=== PATIENT | female | born 1945 | race African-American/Black ===

== ENCOUNTER 2024-09-12 08:09 | Outpatient (AMB) | payer MEDICARE, MEDICAID, SELFPAY ==
--- NOTE | 2024-09-12 08:15 | A.OFFPC_ITS ---
Vital Signs 09/12/24 08:25 09/12/24 08:29 Height 5 ft Weight 126 lb BMI 24.6 BP 192/88 H 138/82 Blood Pressure Location Rt brachial Rt brachial Position Sitting Pulse 60 Pulse Source Pulse Oximeter Temp 97.1 F Temp Source Temporal Artery Scan Pulse Oximetry (%) 99 Oxygen Delivery Method Room Air Intake Visit Reasons: Hypertension/Kidney disease Intake Note: Cony presents in the office today to establish care. Business Unit Director Required: Yes Business Unit Director Language: Citrix Architect Name: Roslyn Newton [id number] Allergies No Known Allergies Allergy (Verified 09/12/24 08:36) Medication List - Last Reconciled 09/12/24 by Kylie Babb CNP amlodipine 5 mg PO DAILY apixaban (Eliquis) 2.5 mg PO BID carvedilol 6.25 mg PO ONCE sevelamer carbonate 800 mg PO TID Tobacco use date assessed: 09/12/24 Fall risk assessment: 1 Fall in past year Last assessed Fall Risk: 09/12/24 Dental Screening Dental Screen Date: 09/12/24 Did you have a dental visit in the last 12 months?: No Did you have a dental problem in the last 6 months where you did not have access to dental care?: No Was dental information given to patient?: Patient declined HPI HPI Comments History of Present Illness Details 78-year-old Swedish-speaking female, acc ompanied by her daughter presents to establish care. She admits to taking her medications as prescribed without adverse reactions. Relocated to [facility] from [place] in 02/2024. Prior PCP? 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 Does not vape. Does not dri nk alcohol. Denies recreational drug use - Has been making healthy dietary choice s. Exercises routinely. Generally sleep well Health maintenance - Last eye exam was 2 years ago. Referr ed to Ophthalmology for routine eye exam - Last dental visit was in 07/2023; bernarda raged to schedule an appointment with his dentist for routine dental care - Last tetanus vaccine was more than 10 years ago; received Tdap vaccine today - Notes that she is up-to-date on the fl u vaccines - She notes that she was vaccinated for PNA. Record not currently available - She has never been vaccinated for waller gles - Last pap smear test was about 5 years: normal. She has an appointment scheduled with [facility] cold working supervisor in 09/26/2024 - Last mammogram was 2 [place] ago [place]: She has mammogram scheduled at [facility] - She has never had a colonoscopy. She h as a colonoscopy scheduled with [facility] in 12/2024 - [place]: Dexa scan ordered [facility] Tu, [place], Sat and nephrology [facility] Cardiology Interpretation by a professional wood lather via telephone. [facility] Medical History (Updated 09/12/24 @ 14:18 by Kylie Babb CNP) Kidney disease High blood pressure Asthma Family History (Updated 09/12/24 @ 08:24 by Gabbi Engel MA) Mother Asthma Hypertension Social History (Updated 09/12/24 @ 08:25 by Gabbi Engel MA) Housing: Apartment Alcohol intake: never Patient Tobacco Use Status: Never used Tobacco e-Cigarette/Vaping Use: Never Used Second Hand Smoke Exposure: No service: No Current occupational status: retired and other Current occupational exposures/hazards: No Cognitive needs: No Hearing needs: No Vision needs: No Questionnaire PHQ-9 Over the last 2 weeks, how often have you been bothered by any of the following problems? 1. Little interest or pleasure in doing things: several days 2. Feeling down, depressed, or hopeless: not at all 3. Trouble falling or staying asleep, or sleeping too much: not at all 4. Feeling tired or having little energy: not at all 5. Poor appetite or overeating: several days 6. Feeling bad about yourself - or that you are a failure or have let yourself or your family down: not at all 7. Trouble concentrating on things, such as reading the newspaper or watching television: not at all 8. Moving or speaking so slowly that other people could have noticed. Or the opposite - being so fidgety or restless that you have been moving around a lot more than usual: not at all 9. Thoughts that you would be better off or of hurting yourself in some way: not at all Total score: 2 Depression Screening Interpretation: Negative Depression Screening Done: Yes 73343 - PHQ-9 Billing: Yes Source: Developed by Drs. Len Gomez, Rylie Blackman, Juan M Borrego and colleagues, with an educational santos from [employer]. Thrive Questionnaire Date Thrive assessed: 09/12/24 I am a: Patient What is your living situation today?: I have a steady place to live Within the past 12 months, did the food you bought not last and you didn't have the money to get more?: Sometimes True Within the past 12 months, did you worry whether your food would run out before you got money to buy more?: Never true Do you have trouble paying for medicines?: No Do you have trouble getting transportation to medical appointments?: No Do you have trouble paying your heating and electricity bill?: No Do you have trouble taking care of your child, family member or friend?: No Do you have trouble with day-to-day activities such as bathing, preparing meals, shopping, managing finances, etc.?: No Are you currently unemployed and looking for a job?: Yes Are you interested in more education?: I choose not to answer this question Please select the resources that you would like help with: None Currently or been in a relationship where the following occur: No concerns reported THRIVE Score: 1 AUDIT C Alcohol Use Questionnaire (AUDIT-C) 1. How often do you have a drink containing alcohol?: Never Total Score: 0 JUS-7 AMB Questionnaire JUS-7 Date JUS - 7 assessed: 09/12/24 Feeling nervous, anxious, or on edge: 0 = Not at all Not being able to stop or control worryin = Not at all Worrying too much about different things: 1 = Several days Trouble relaxin = Not at all Being so restless that it is hard to sit still: 0 = Not at all Becoming easily annoyed or irritable: 0 = Not at all Feeling afraid as if something awful might happen: 0 = Not at all Total JUS-7 score (0-4 normal; 5-9 mild; 10-14 moderate; 15-21 severe): 1 Source: Developed by Drs. Len Gomez, Rylie Blackman, Juan M Borrego and colleagues, with an educational santos from [employer]. Review of Systems Const Details: Denies chills, Denies fatigue, Denies fever(s), Denies headache(s) and Denies weakness HEENT Denies change in vision, Denies dizziness, Denies headache(s), Denies hearing loss, Denies nasal congestion, Denies sinus pain, Denies sinus pressure and Denies sore throat Card Denies chest pain, Denies lightheadedness, Denies dyspnea and Denies other (palpitations) Resp Denies cough, Denies dyspnea and Denies wheezing GI Denies abdominal pain, Denies melena, Denies hematochezia, Denies change in bowel habits, Denies dyspepsia and Denies nausea Denies hematuria and Denies dysuria Musc Denies abnormal gait, Denies myalgias, Denies arthralgias, Denies numbness and Denies tingling Skin/Breast Denies rash, Denies unusual bruising and Denies wounds Neuro Denies abnormal gait, Denies dizziness, Denies headache(s), Denies memory loss, Denies numbness, Denies Sensory deficit (Neuro), Denies tingling and Denies weakness Psych Denies anxiety, Denies depression and Denies memory loss Endo Denies cold intolerance, Denies fatigue, Denies heat intolerance, Denies polydipsia and Denies polyuria Jl/Lymph Denies easy bleeding and Denies easy bruising Aller/Immun Denies wheezing Physical exam (Primary Care) Vital Signs: Last Vital Signs Temp 97.1 F 09/12/24 08:25 Pulse 60 09/12/24 08:25 BP 138/82 09/12/24 08:29 Pulse Ox 99 09/12/24 08:25 Oxygen Delivery Method Room Air 09/12/24 08:25 BMI result Body Mass Index 24.6 Tobacco/Smoking Status: Tobacco use Status Tobacco use date assessed 09/12/24 09/12/24 08:23 Patient Tobacco Use Status Never used Tobacco 09/12/24 08:25 e-Cigarette/Vaping Use Never Used 09/12/24 08:25 PHQ-9: PHQ-9 Score PHQ-9: Total score 2 09/14/24 08:14 Depression Screening Interpretation: Negative Thrive Assessment: Date of Thrive Assessment Date Thrive assessed 09/12/24 09/12/24 08:18 Currently or been in a relationship where the following occur: No concerns rep orted Const Other: General: no acute distress, well developed, alert and awake Nutritional Appearance: well nourished Orientation/consciousness: patient oriented x3 HENMT Head: Yes normocephalic and Yes atraumatic Ears: hearing grossly normal bilaterally and TM's normal bilaterally General nose exam: Normal external nose present and Normal nares present Mouth: Normal oral and palatal mucosa present and moist mucous membranes Teeth and gingiva: dentition normal Throat: Yes oropharynx normal Eyes Pupils: Equal, round and reactive pupils present and Pupil accommodation reflex normal EOM: EOMs intact bilaterally Neck Neck: Yes normal visual inspection, Yes no lymphadenopathy and Yes trachea midline Thyroid: Thyroid normal Carotids: no bruits Lymphatic: no lymphadenopathy noted Chest Chest palpation & inspection: normal inspection of the chest Resp Effort & Inspection: normal respiratory effort Auscultation: clear to auscultation bilaterally Cardio Rate: regular rate Rhythm: regular rhythm Heart sounds: S1 normal heart sound present, S2 normal heart sound present, no gallops, no murmurs and no rubs Bruits: no abdominal aortic bruits and no carotid bruits GI Palpation (GI): No Abdominal aortic bruit present, Soft to palpation, nontender, No hepatosplenomegaly present and No Rebound tenderness present Auscultation: normal bowel sounds General: Yes no CVA tenderness Back/Spine/Pelvis Back: no CVA tenderness Cervical Spine: cervical ROM normal and No Cervical spine tenderness Thoracic/Lumbar Spine: thoraco-lumbar ROM normal, No pain with thoraco-lumbar ROM, No thoracic spinal tenderness and No lumbar spinal tenderness Skin General: warm and dry. Normal skin color. Normal skin turgor Lesions: no lesions Rashes: no rashes Trauma: no lacerations or abrasions Wounds: no wounds Nails: normal Neuro General: patient oriented x3, gait normal and CN's II-XI intact bilaterally Cranial nerves: Yes Equal, round and reactive pupils present Cognition (Neuro): normal cognition Gait exam (Neuro): Normal gait present Motor exam (neuro): 5/5 motor strength present throughout Sensory Exam: No Sensory deficit (Neuro) Deep tendon reflexes (DTR's): Right patellar reflex intensity grade: 2+ and Left patellar reflex intensity grade: 2+ Extrem General: Yes normal to inspection, No edema and No calf tenderness Psych Appearance: grossly normal Affect: normal affect Attitude: cooperative Thought process: Normal thought process present Immunizations Boostrix Tdap 2.5 Lf unit-8 mcg-5 Lf/0.5 mL intramuscular syringe Performing Provider: Kylie Babb CNP Performing Location: [facility] Administered by: Pilo Munoz RN on 09/12/24 09:12 Dose Route Admin Location Dispensed Lot Number Expiration Date NDC Berry Picker 0.5 mL IM Right Deltoid 0.5 mL [id number] 11/16/26 [id number] [employer] Total Dispensed Waste 0.5 mL 0 % VIS Given Date VIS Provided VIS Publication Date 09/12/24 Single Vaccine 20 Eligibility Eligibility Date Funding Source Not [facility] Eligible 09/12/24 Private Coding Level of Care Code New Pt Level 3 (99990) Est Pt Prev Care >65y(53719) Diagnoses Normal physical examination, routine Z00.00 High blood pressure I10 Kidney disease N28.9 Vaccine counseling Z71.85 Age-related osteoporosis without fracture M81.8 Eye exam, routine Z01.00 Laboratory tests ordered as part of a complete physical exam (CPE) Z00.00 Additional Codes PHQ-9 - 10808 - PHQ-9 Billing: Yes ([id number]) Assessment & Plan Assessment & Plan (1) Normal physical examination, routine: Code(s): Z00.00 - Encounter for general adult medical examination without abnormal findings Category: Medical Plan: No significant functional limitation noted. Continue current treatment regimen. Healthy diet and routine exercise encouraged. Perform lab work and follow-up in a month for hypertension and labs reviewed. Return sooner with symptoms or concerns. Verbalized understanding and agreed with the plan. (2) High blood pressure: Code(s): I10 - Essential (primary) hypertension Category: Medical Plan: Resting blood pressure is 130/82, above goal of less than 130/80. Continue current treatment regimen. Low-sodium diet encouraged. Follow-up in 1 month. Verbalized understanding and agreed with the plan. (3) Kidney disease: Code(s): N28.9 - Disorder of kidney and ureter, unspecified Category: Medical Plan: Continue current treatment regimen. She goes to dialysis on Tuesdays, , and Saturdays. Continue follow-up with Nephrology as planned. Verbalized understanding and agreed with the treatment plan. (4) Vaccine counseling: Code(s): Z71.85 - Encounter for immunization safety counseling Category: Medical Plan: She has never been vaccinated for shingles. Instructed on the importance of vaccination and encouraged to get the shingles vaccines. She may get the vaccine from the local pharmacy. Verbalized understanding and agreed with the plan. (5) Age-related osteoporosis without fracture: Code(s): M81.8 - Other osteoporosis without current pathological fracture Category: Medical Plan: Last dexa scan was 2 years in [place]: Dexa scan ordered. (6) Eye exam, routine: Code(s): Z01.00 - Encounter for examination of eyes and vision without abnormal findings Category: Medical Plan: History of myopia. Last eye exam was 2 years ago. Referred to Ophthalmology for routine eye exam. (7) Laboratory tests ordered as part of a complete physical exam (CPE): Code(s): Z00.00 - Encounter for general adult medical examination without abnormal findings Category: Medical Plan: Fasting labs ordered as part of a complete physical exam. Advised to fast for at least 10 hours before getting labs drawn. May drink water Verbalized understanding and agreed with treatment plan. Orders: Orders TDaP Immunization 09/12/24 Z23 - Encounter for immunization Complete Blood Count Auto Diff 09/12/24 Z. - Encounter for general adult medical examination without abnormal findings Vitamin D 25-OH Total 09/12/24 Z. - Encounter for general adult medical examination without abnormal findings Lipid Panel 09/12/24 Z00. - Encounter for general adult medical examination without abnormal findings Comprehensive [place]. Panel Fast 09/12/24 Z. - Encounter for general adult medical examination without abnormal findings Microalbumin, Random (w Creat) 09/12/24 Z. - Encounter for general adult medical examination without abnormal findings TSH reflex Free T4 09/12/24 Z. - Encounter for general adult medical examination without abnormal findings UA CC w/rflx Micro + Cult 09/12/24 Z00.00 - Encounter for general adult medical examination without abnormal findings XR DEXA axial skeleton 09/12/24 M81.0 - Age-related osteoporosis without current pathological fracture Referrals Ophthalmology Referral Z01.00 - Encounter for examination of eyes and vision without abnormal findings
--- OUTSIDE RECORDS SUMMARY | 2024-09-12 08:16 | XMS_ITS | Encounter Summary ---
Author Organization [facility], Address [address] [place] [address] Phone Care Team Providers Care Patient Service Technician Pst Name Role Phone Unavailable Primary Care Provider Unavailabl e Encounter Details Date Type Department Care Team (Late st Contact Info) Description 09/01/2024 Treatment [facility], [address] [place] [address] Parviz Patterson MD [address] [place] [id number] End stage renal disease; Dependence on renal dialysis Social History Tobacco Use Types Packs/Day Years Used Date Smoking Tobacco: Never Assessed Comments Unknown Sex and Gender Information Value Date Recorded Sex Assigned at Not on file Legal Sex Female 11:37 AM EST Gender Identity Not on file Sexual Orientation Not on file documented as of this encounter Miscellaneous Notes * Dialysis Note - Parviz Patterson MD - 09/01/2024 12:00 AM EDT Patient: Cony Jones : 1945 Note Type: Dialysis Rounds-Comp Service Date: 09/01/2024 This patient was personally seen for a complete visit as part of routine monthly dialysis care for end stage renal disease. Attending Adolescent Specialist: PARVIZ PATTERSON Dialysis Location: [facility] Schedule: Shift: 2 OVERVIEW COMMENTS: New start at the unit. Came from [place]. ESRD secondary to HTN. On HD in [place] for 2.5 years. Doing well on treatment today. Labs being drawn and will be reveiwed accordingly. HOME MEDICATIONS Current [facility] Outpatient Medications acetaminophen 325 mg capsule Take 2 capsule by mouth every eight hours. [PRN pain.] albuterol sulfate 90 mcg/actuation HFA aerosol inhaler Inhale 2 puff using inhaler every four hours as needed. [for wheezing] amiodarone 200 mg tablet Take 1 tablet by mouth once a day. Aspirin Childrens 81 mg tablet,chewable Take 1 tablet by mouth once a day. Eliquis 2.5 mg tablet Take 1 tablet by mouth twice a day as directed. [.] Renvela 800 mg tablet Take 1 tablet by mouth three times a day with meals. Sevelamer Carbonate Tablet 800 mg tablet Take 7 Tablet By Mouth Every 24 hours With Meals. [Take 2 tablets with 3 meals a day and 1 tablet with 1 snack daily.] Current [facility] Allergies Allergen: No Known Allergies Allergen: No Known Drug Allergies Allergen: No Known Food Allergies DIALYSIS PRESCRIPTION Treatment Data Treatment Date: 09/08/2024 started at: 10:37 AM Dialysate / Machine Temp (prescribed): 37.0*C Dialysate / Machine Temp (actual): 36.9*C BFR (prescribed): 450 BFR (average delivered): 440 DFR (prescribed): Manual 500 DFR (average delivered): 500 Prescribed Time: 03:15 Actual Time: 03:18 EDW (kg): 56.0 Dialyzer: 160NRe Optiflux Dialysate: 2.0 K, 2.50 Ca, 1.0 Mg, 100 Dextrose ([id number]) Sodium: 137 Bicarb: 35 Pre Dialysis Vitals Pre BP Sit: 171/84 Pre Wt (kg): 57.9 EDW Deviation (kg): 1.9 Temp: 97.2*F Post Dialysis Vitals Post BP Sit: 129/74 Post Wt (kg): 56.6 TREATMENT MEDICATIONS ORDERS Vitamin D (Calcitriol) Oral 1.25 mcg ORAL Every Treatment 07/09/2024 - 07/08/2025 BP AND FLUID ASSESSMENT Post BP Sit 129/74 - 09/08/2024 144/68 - 09/06/2024 134/74 - 09/03/2024 Post Wt (kg) 56.6 - 09/08/2024 56.8 - 09/06/2024 56.2 - 09/03/2024 EDW (kg) 56.0 - 09/08/2024 56.0 - 09/06/2024 56.0 - 09/03/2024 Deviation (kg) 0.6 - 09/08/2024 0.8 - 09/06/2024 0.2 - 09/03/2024 ADEQUACY ASSESSMENT spKt/V (Daugirdas II) 1.74 (08/25/24) 3.11 (08/02/24) 2.95 (07/28/24) eKdrt/V 1.46 (08/25/24) 2.62 (08/02/24) 2.58 (07/28/24) % Urea Reduction 78 (08/25/24) 92 (08/02/24) 91 (07/28/24) BUN 70 (09/08/24) 73 (08/25/24) 61 (08/11/24) BUN Post Dialysis 16 (08/25/24) 5 (08/02/24) 4 (07/28/24) Creatinine 7.04 (09/08/24) 7.57 (08/11/24) 7.95 (07/07/24) Bicarbonate (CO2) 23 (09/08/24) 24 (08/11/24) 23 (07/07/24) Sodium 138 (09/08/24) 136 (08/11/24) 135 (07/07/24) Missed Treatments 0 - Last 30 days 0 - Last 60 days ACCESS ASSESSMENT AVFistula Standard Left Upper Arm Active (In Use) - 03/31/2024 Placed - Unknown Access Flow 1034 (06/27/24) 1235 (05/24/24) 1164 (04/26/24) ANEMIA ASSESSMENT Hemoglobin 10.7 (09/08/24) 10.6 (09/01/24) 11.8 (08/25/24) Iron Saturation (TSat) 77 (09/08/24) 68 (08/11/24) 15 (07/07/24) Ferritin 1,404 (09/08/24) 1,679 (08/11/24) 922 (07/07/24) Iron 190 (09/08/24) 167 (08/11/24) 29 (07/07/24) TIBC 246 (09/08/24) 245 (08/11/24) 196 (07/07/24) MCV 87 (07/07/24) 78 (03/31/24) Platelets 128 (07/07/24) 104 (03/31/24) BMM ASSESSMENT Calcium 9.0 09/08/24 9.0 08/11/24 8.2 07/07/24 Corrected Calcium 9.2 09/08/24 9.1 08/11/24 8.8 07/07/24 Phosphorus 6.7 09/08/24 6.5 08/11/24 6.3 07/07/24 Calcium Phosphorus Product 60 09/08/24 59 08/11/24 52 07/07/24 PTH 385 09/08/24 299 08/11/24 615 07/07/24 Vitamin D, 25-OH, Total 27.7 03/31/24 Aluminum <5 03/31/24 NUTRITION ASSESSMENT Albumin 3.8 09/08/24 3.9 08/11/24 3.3 07/07/24 Potassium 5.1 09/08/24 5.7 08/11/24 5.5 07/07/24 eNPCR 1.20 08/25/24 1.08 08/02/24 1.07 07/28/24 ADDITIONAL LABS WBC 3.88 (07/07/24) 4.27 (03/31/24) Hepatitis B Surface Ab 27 (03/31/24) ADDITIONAL COMMENT COMMENTS: Patient is stable Medications reviewed Physical Exam Vital signs: reviewed Lungs: clear Edema: none Impression 1. Adequacy: KT/V was assessed and the dialysis prescription was adjusted as needed. 2. Access: Dialysis access function is acceptable. 3. Hypertension: Blood pressure control and volume status are at goal. 4. Anemia: Labs reviewed and adjustments to regimen made according to anemia management protocol. 5. Mineral Bone Disease: Labs reviewed. Diet and medication adjustment as per protocol. 6. Nutrition: Labs reviewed. Dietary adjustments made in conjunction with investigation division sergeant. 7. Transplant: The patient is being evaluated for a kidney transplant. 05/24: stable, sane HD Rx 06/21: stable, no issues reported, same HD Rx 08/02: stable, same Hd Rx 09/01: stable, same HD Rx Signed by: PARVIZ PATTERSON MD on 09/09/2024 at 01:44:30 PM Transcribed by: PARVIZ PATTERSON MD on 09/09/2024 at 01:44:30 PM documented in this encounter Plan of Treatment Not on file documented as of this encounter Visit Diagnoses Diagnosis End stage renal disease Dependence on renal dialysis documented in this encounter
[2024-09-12 08:25] VITALS: BP 192/88; PULSE 60; TEMP 36.2; O2SAT 99; BMI 24.6
[2024-09-12 08:29] VITALS: BP 138/82
== END 2024-09-12 09:12 | disposition home or self-care (01) ==
LOC: HO.HMCFM 08:10
PROVIDERS: PCP Nurse Practitioner Family; Visit Provider Nurse Practitioner Family
DX: Z23 Encounter for immunization (principal)

== ENCOUNTER → 2024-09-12 08:09 | Outpatient (BNVA) | payer MEDICARE, MEDICAID, SELFPAY | PROVIDERS: PCP Nurse Practitioner Family; Visit Provider Nurse Practitioner Family | DX: Z00.00 Encounter for general adult medical examination without abnormal findings (principal); Z23 Encounter for immunization; I10 Essential (primary) hypertension; N28.9 Disorder of kidney and ureter, unspecified; M81.8 Other osteoporosis without current pathological fracture; Z71.85 Encounter for immunization safety counseling | CPT/HCPCS: 90471; 90715; 96127; 99397 ==

== ENCOUNTER 2024-10-14 10:56 | Outpatient (AMB) | payer MEDICARE, MEDICAID, SELFPAY ==
--- NOTE | 2024-10-14 10:59 | A.OFFPC_ITS ---
Vital Signs 10/14/24 11:04 10/14/24 11:16 Height 5 ft Weight 125 lb BMI 24.4 BP 140/67 H 134/70 Blood Pressure Location Lt brachial Rt brachial Position Sitting Sitting Respiration 16 Pulse 65 Pulse Source Pulse Oximeter Temp 98.3 F Temp Source Oral Pulse Oximetry (%) 99 Oxygen Delivery Method Room Air Intake Visit Reasons: 1 mos HTN, labs review Intake Note: patient here for 1 month follow up on HTN and lab review Log Sorting Supervisor Required: Yes Log Sorting Supervisor Language: Estonian Information Interpreted: non-clinical & clinical Is last menstrual period known: No Post menopausal: No Patient : No Allergies No Known Allergies Allergy (Verified 10/14/24 11:12) Medication List - Last Reconciled 10/14/24 by Kylie Babb CNP amlodipine 5 mg PO DAILY apixaban (Eliquis) 2.5 mg PO BID carvedilol 6.25 mg PO ONCE sevelamer carbonate 800 mg PO TID Tobacco use date assessed: 10/14/24 Fall risk assessment: 1 Fall in past year Last assessed Fall Risk: 10/14/24 Dental Screening Dental Screen Date: 10/14/24 Did you have a dental visit in the last 12 months?: No Did you have a dental problem in the last 6 months where you did not have access to dental care?: No Was dental information given to patient?: Yes HPI HPI Comments History of Present Illness Details 78-year-old Estonian-speaking female, acc ompanied by her daughter, presents for hypertension and review of recent lab results. She admits to taking her medications as prescribed without adverse reactions. She has been making healthy lifestyle choices. She offers no complaints and denies acute symptoms at this time. She did not get lab work done as planned for this visit. Interpretation by a professional atmospheric physics professor via video. [facility] Medical History (Updated 09/12/24 @ 14:18 by Kylie Babb CNP) Kidney disease High blood pressure Asthma Family History (Updated 09/12/24 @ 08:24 by Gabbi Engel MA) Mother Asthma Hypertension Social History (Updated 09/12/24 @ 08:25 by Gabbi Engel MA) Housing: Apartment Alcohol intake: never Patient Tobacco Use Status: Never used Tobacco e-Cigarette/Vaping Use: Never Used Second Hand Smoke Exposure: No service: No Current occupational status: retired and other Current occupational exposures/hazards: No Cognitive needs: No Hearing needs: No Vision needs: No Questionnaire Thrive Questionnaire Date Thrive assessed: 09/12/24 I am a: Patient What is your living situation today?: I have a steady place to live Within the past 12 months, did the food you bought not last and you didn't have the money to get more?: Sometimes True Within the past 12 months, did you worry whether your food would run out before you got money to buy more?: Never true Do you have trouble paying for medicines?: No Do you have trouble getting transportation to medical appointments?: No Do you have trouble paying your heating and electricity bill?: No Do you have trouble taking care of your child, family member or friend?: No Do you have trouble with day-to-day activities such as bathing, preparing meals, shopping, managing finances, etc.?: No Are you currently unemployed and looking for a job?: Yes Are you interested in more education?: I choose not to answer this question Please select the resources that you would like help with: None Currently or been in a relationship where the following occur: No concerns reported THRIVE Score: 1 JUS-7 AMB Questionnaire JUS-7 Date JUS - 7 assessed: 09/12/24 Source: Developed by Drs. Len Gomez, Rylie Blackman, Juan M Borrego and colleagues, with an educational santos from [employer]. Review of Systems Const Details: Const Denies chills, Denies fatigue, Denies fever(s), Denies headache(s) and Denies weakness ENT Denies dizziness and Denies headache(s) Card Denies chest pain, Denies lightheadedness, Denies dyspnea and Denies other (Palpitations) Resp Denies cough, Denies dyspnea, Denies wheezing and Denies other ( shortness of breath) GI Denies abdominal pain, Denies melena, Denies hematochezia, Denies change in bowel habits, Denies dyspepsia and Denies nausea Denies hematuria and Denies dysuria Musc Denies abnormal gait, Denies myalgias, Denies arthralgias, Denies numbness and Denies tingling Skin/Breast Denies rash, Denies unusual bruising and Denies wounds Neuro Denies abnormal gait, Denies dizziness, Denies headache(s), Denies memory loss, Denies numbness, Denies Sensory deficit (Neuro), Denies tingling and Denies weakness Psych Denies anxiety, Denies depression, Denies memory loss Endo Denies cold intolerance, Denies fatigue, Denies heat intolerance, Denies polydipsia and Denies polyuria Aller/Immun Denies wheezing Physical exam (Primary Care) Tobacco/Smoking Status: Tobacco use Status Tobacco use date assessed 09/12/24 10/14/24 11:01 Patient Tobacco Use Status Never used Tobacco 10/14/24 11:01 e-Cigarette/Vaping Use Never Used 10/14/24 11:01 Thrive Assessment: Date of Thrive Assessment Date Thrive assessed 09/12/24 10/14/24 11:01 Currently or been in a relationship where the following occur: No concerns reported Const Other: General: no acute distress and well developed Nutritional Appearance: well nourished Orientation/consciousness: patient oriented x3 HENMT Head: Yes normocephalic and Yes atraumatic Eyes General: appearance normal, both eyes and all related structures Pupils: Equal, round and reactive pupils present EOM: EOMs intact bilaterally Resp Effort & Inspection: normal respiratory effort Auscultation: clear to auscultation bilaterally Cardio Rate: regular rate Rhythm: regular rhythm Heart sounds: S1 normal heart sound present, S2 normal heart sound present, no gallops, no murmurs and no rubs GI Palpation (GI): No Abdominal aortic bruit present, Soft to palpation, nontender, No hepatosplenomegaly present and No Rebound tenderness present Auscultation: normal bowel sounds General: Yes no CVA tenderness Back/Spine/Pelvis Back: no CVA tenderness Cervical Spine: cervical ROM normal and No Cervical spine tenderness Thoracic/Lumbar Spine: thoraco-lumbar ROM normal, No pain with thoraco-lumbar RO M, No thoracic spinal tenderness and No lumbar spinal tenderness Extrem General: Yes normal to inspection, No edema and No calf tenderness Skin General: warm and dry. Normal skin color. Normal skin turgor General: patient oriented x3, gait normal and no focal neuro deficit Cranial nerves: Yes Equal, round and reactive pupils present Cognition (Neuro): normal cognition Gait exam (Neuro): Normal gait present Sensory Exam: No Sensory deficit (Neuro) Psych Appearance: grossly normal Affect: normal affect Attitude: cooperative Thought process: Normal thought process present Coding Level of Care Code Est Pt Level 3 (74183) Diagnoses High blood pressure I10 Assessment & Plan Assessment & Plan (1) High blood pressure: Code(s): I10 - Essential (primary) hypertension Category: Medical Plan: Resting blood pressure is 134/70, slightly above goal of less than 130/80. Continue current treatment regimen. Low-sodium diet encouraged. Perform fasting lab work as planned. Will contact patient with critical findings; otherwise, will review at next visit. Follow-up in 3 months or sooner with symptoms or concerns. Verbalized understanding and agreed with the plan.
[2024-10-14 11:04] VITALS: BP 140/67; PULSE 65; RESP 16; TEMP 36.8; O2SAT 99; BMI 24.4
--- OUTSIDE RECORDS SUMMARY | 2024-10-14 11:07 | XMS_ITS | Encounter Summary ---
Author Organization [facility], Address [address] [place] [address] Phone Care Team Providers Care Shipwright Helper Name Role Phone Unavailable Primary Care Provider Unavailabl e Encounter Details Date Type Department Care Team (Late st Contact Info) Description 05/26/2024 Documentation Only [facility], [address] [place] [address] Peace Diaz Social History Tobacco Use Types Packs/Day Years Used Date Smoking Tobacco: Never Assessed Comments Unknown Sex and Gender Information Value Date Recorded Sex Assigned at Not on file Legal Sex Female 11:37 AM EST Gender Identity Not on file Sexual Orientation Not on file documented as of this encounter Plan of Treatment Not on file documented as of this encounter Visit Diagnoses Not on filedocumented in this encounter
[2024-10-14 11:16] VITALS: BP 134/70
== END 2024-10-14 11:38 | disposition home or self-care (01) ==
LOC: HO.HMCFM 10:57
PROVIDERS: PCP Nurse Practitioner Family; Visit Provider Nurse Practitioner Family
DX: I10 Essential (primary) hypertension (principal)

== ENCOUNTER → 2024-10-14 10:56 | Outpatient (BNVA) | payer MEDICARE, MEDICAID, SELFPAY | PROVIDERS: PCP Nurse Practitioner Family; Visit Provider Nurse Practitioner Family | DX: I10 Essential (primary) hypertension (principal) | CPT/HCPCS: 99212 ==

== ENCOUNTER → 2024-10-26 08:45 | Outpatient (BNV) | payer MEDICARE, MEDICAID, SELFPAY | PROVIDERS: PCP Nurse Practitioner Family; Visit Provider Radiology Diagnostic Radiology | DX: E28.39 Other primary ovarian failure (principal) | CPT/HCPCS: 77080 ==

== ENCOUNTER 2024-10-26 08:59 | Outpatient (REF) | payer MEDICARE, MEDICAID, SELFPAY ==
--- NOTE | ~2024-10-26 | MM_ITS ---
EXAMINATION: DXA BONE DENSITY AXIAL HISTORY: M81.0 - Age-related osteoporosis without current pathological fracture TECHNIQUE: [employer] Dual energy absorptiometry (DEXA) of the lumbar spine, total left hip, and femoral neck was performed. COMPARISON: There are no prior studies for comparison. FINDINGS: The bone mineral density of the lumbar spine is 0.867 g/cm2, corresponding to a T-score of -2.6, and a Z-score of -0.6. This is indicative of osteoporosis. The bone mineral density of the left total hip is 0.604 g/cm2, corresponding to a T-score of -3.2, and a Z-score of -1.2. This is indicative of osteoporosis. The bone mineral density of the left femoral neck is 0.522 g/cm2, corresponding to a T-score of -3.7, and a Z-score of -1.5. This is indicative of osteoporosis. MM/XR DEXA axial skeleton IMPRESSION: Based on bone mineral density, and according to World Health Organization (WHO) criteria, the diagnosis is consistent with osteoporosis. Statistically, 68% of repeat scans fall within 1 SD (+/- 0.010 g/cm2 for AP spine L1-L4) and 1 SD (+/- 0.012 g/cm2 for femur total) FRAX is a trademark of the [employer]'s [place] for Metabolic Bone Disease, a World Health Organization (WHO) Collaborating Center. Electronically signed by: Len Pate MD 10/26/2024 10:36 AM EDT
--- OUTSIDE RECORDS SUMMARY | 2024-10-26 09:10 | XMS_ITS | Encounter Summary ---
Author Organization [facility], Address [address] [place] [address] Phone Care Team Providers Care Rn Tele Name Role Phone Unavailable Primary Care Provider Unavailabl e Encounter Details Date Type Department Care Team (Late st Contact Info) Description 05/26/2024 Documentation Only [facility], [address] [place] [address] Peace Diaz Social History Tobacco [...]
== END 2024-10-26 09:00 | disposition home or self-care (01) ==
LOC: HO.MAMMO 08:59
PROVIDERS: PCP Nurse Practitioner Family; Visit Provider Nurse Practitioner Family
DX: M81.0 Age-related osteoporosis without current pathological fracture (principal)
CPT/HCPCS: 77080

== ENCOUNTER 2025-01-13 09:36 | Outpatient (REF) | payer MEDICARE, MEDICAID, SELFPAY ==
[2025-01-13 09:52] LABS: MANUAL DIFF FLAG NO
--- OUTSIDE RECORDS SUMMARY | 2025-01-13 10:37 | XMS_ITS | Encounter Summary ---
Author Organization [facility], Address [address] [place] [address] Phone Care Team Providers Care Feed Mill Supervisor Name Role Phone Unavailable Primary Care Provider Unavailabl e Encounter Details Date Type Department Care Team (Late st Contact Info) Description 01/12/2025 Orders Only [facility] [address] [place] [address] Caleb Gold MD [address] [place] [address] Social History Tobacco Use Types Packs/Day Years Used Date Smoking Tobacco: Never Assessed Comments Unknown Sex and Gender Information Value Date Recorded Sex Assigned at Not on file Legal Sex Female 11:37 AM EST Gender Identity Not on file Sexual Orientation Not on file documented as of this encounter Plan of Treatment Not on file documented as of this encounter Procedures Procedure Name Priority Date/Time Associated Diagnosis Comments HEMATOLOGY Routine 01/12/2025 documented in this encounter Results * (ABNORMAL) HEMATOLOGY (01/12/2025) Hemoglobin 10.0(L) 12.0 - 16.0 g/dL [facility] Hemoglobin x 3 30(L) 36.0 - 48.0 % [facility] 01/12/2025 01/13/2025 7:1 9 AM EDT Narrative [facility] - 01/13/2025 Unless otherwise specified, test(s) performed at: [facility], [address] [place], [place] [id number] MANAGER UI: Clyde Baca M.D. For any questions, please call customer service at FREQUENCY:OTHER Resulting Agency Comment Specimen source: Blood us Caleb Gold MD LAB BLOOD ORDERABLES Final Re sult [facility] See order comments or contact performing lab Unknown, [place] documented in this encounter Visit Diagnoses Not on filedocumented in this encounter
--- OUTSIDE RECORDS SUMMARY | 2025-01-13 10:37 | XMS_ITS | Encounter Summary ---
Author Organization [facility], Address [address] [place] [address] Phone Care Team Providers Care Collection Systems Technician Name Role Phone Unavailable Primary Care Provider Unavailabl e Encounter Details Date Type Department Care Team (Late st Contact Info) Description 05/26/2024 Documentation Only [facility], [address] [place] [address] Peace Diaz Social History Tobacco [...]
--- OUTSIDE RECORDS SUMMARY | 2025-01-13 10:37 | XMS_ITS | Encounter Summary ---
Author Organization [facility], Address [address] [place] [address] Phone Care Team Providers Care Outside Laborer Name Role Phone Unavailable Primary Care Provider Unavailabl e Encounter Details Date Type Department Care Team (Late st Contact Info) Description 05/26/2024 Documentation Only [facility], [address] [place] [address] Peace Diaz Social History Tobacco [...]
--- OUTSIDE RECORDS SUMMARY | 2025-01-13 10:37 | XMS_ITS | Clinical Summary ---
Author Organization [facility] Address [address] [place] [id number] Care Team Providers Care Political Theory Professor Name Role Phone Unavailable Primary Care Provider Unavailabl e Encounters Date Type Department Care Team Description 01/12/2025 Orders Only [facility] [address] [address] Caleb Gold MD 01/10/2025 Treatment [facility] [address] [place] [address] Chiquis Long FNP-C End stage renal disease; Dependence on renal dialysis 01/05/2025 Orders Only [facility] [address] [address] Caleb Gold MD 01/03/2025 Treatment [facility], [address] [place] [address] Chiquis Long FNP-C End stage renal disease; Dependence on renal dialysis 12/29/2024 Orders Only [facility] [address] [address] Caleb Gold MD 12/29/2024 Treatment [facility] [address] [place] [address] Parviz Sweeney MD End stage renal disease; Dependence on renal dialysis 12/22/2024 Orders Only [facility] [address] [address] Caleb Gold MD 12/22/2024 Treatment [facility] [address] [place] [address] Parivz Sweeney MD End stage renal disease; Dependence on renal dialysis 12/20/2024 Treatment [facility] [address] [place] [address] Chiquis Long FNP-C End stage renal disease; Dependence on renal dialysis 12/15/2024 Orders Only [facility] [address] [address] Caleb Gold MD 12/13/2024 Treatment [facility] [address] [place] [address] Chiquis Long FNP-C End stage renal disease; Dependence on renal dialysis 12/08/2024 Orders Only [facility] [address] [address] Caleb Gold MD 12/01/2024 Orders Only [facility] [address] [address] Caleb Gold MD 11/29/2024 Treatment [facility] [address] [place] [address] Parviz Sweeney MD End stage renal disease; Dependence on renal dialysis 11/24/2024 Orders Only [facility] [address] [address] Caleb Gold MD 11/22/2024 Treatment [facility] [address] [place] [address] Chiquis Long FNP-C End stage renal disease; Dependence on renal dialysis 11/17/2024 Orders Only [facility] [address] [address] Caleb Gold MD 11/12/2024 Treatment [facility] [address] [place] [address] Chiquis Long FNP-C End stage renal disease; Dependence on renal dialysis 11/10/2024 Treatment [facility] [address] [place] [address] Parviz Sweeney MD End stage renal disease; Dependence on renal dialysis 11/10/2024 Orders Only [facility] [address] [address] Caleb Gold MD 11/03/2024 Orders Only [facility] [address] [address] Caleb Gold MD 11/03/2024 Treatment [facility] [address] [place] [address] Parviz Sweeney MD End stage renal disease; Dependence on renal dialysis 10/29/2024 Orders Only [facility] [address] [address] Caleb Gold MD 10/27/2024 Orders Only [facility] [address] [address] Caleb Gold MD 10/25/2024 Treatment [facility] [address] [place] [address] Chiquis Long FNP-Brady End stage renal disease; Dependence on renal dialysis 10/20/2024 Orders Only [facility] [address] [address] Caleb Gold MD 10/13/2024 Orders Only [facility] [address] [address] Caleb Gold MD from Last 3 Months Social History Tobacco Use Types Packs/Day Years Used Date Smoking Tobacco: Never Assessed Comments Unknown Sex and Gender Information Value Date Recorded Sex Assigned at Not on file Legal Sex Female 11:37 AM EST Gender Identity Not on file Sexual Orientation Not on file Plan of Treatment Health Maintenance Due Date Last Done Comments Pneumococcal Vaccine: 50+ Years (1 of 2 - PCV) 967 Hepatitis B Vaccine (1 of 5 - Risk Dialysis 4-dose series) 1965 Influenza Vaccine (#1) 2024 Procedures Procedure Name Priority Date/Time Associated Diagnosis Comments HEMATOLOGY Routine 01/12/2025 CHEMISTRY Routine 01/05/2025 IMMUNO CHEMISTRY Routine 01/05/2025 CHEMISTRY Routine 01/05/2025 HEMATOLOGY Routine 01/05/2025 HEMATOLOGY Routine 12/29/2024 [facility] Routine 12/22/2024 HD KINETICS Routine 12/22/2024 POST CHEMISTRY Routine 12/22/2024 CHEMISTRY Routine 12/22/2024 HEMATOLOGY Routine 12/22/2024 HEMATOLOGY Routine 12/15/2024 IMMUNO CHEMISTRY Routine 12/08/2024 CHEMISTRY Routine 12/08/2024 HEMATOLOGY Routine 12/08/2024 CHEMISTRY Routine 12/08/2024 HEMATOLOGY Routine 12/01/2024 [facility] Routine 11/24/2024 HD KINETICS Routine 11/24/2024 CHEMISTRY Routine 11/24/2024 POST CHEMISTRY Routine 11/24/2024 HEMATOLOGY Routine 11/24/2024 HEMATOLOGY Routine 11/17/2024 CHEMISTRY Routine 11/10/2024 HEMATOLOGY Routine 11/10/2024 IMMUNO CHEMISTRY Routine 11/10/2024 CHEMISTRY Routine 11/10/2024 CHEMISTRY Routine 11/03/2024 HEMATOLOGY Routine 11/03/2024 [facility] Routine 10/29/2024 HD KINETICS Routine 10/29/2024 POST CHEMISTRY Routine 10/29/2024 CHEMISTRY Routine 10/29/2024 CHEMISTRY Routine 10/27/2024 HEMATOLOGY Routine 10/27/2024 HEMATOLOGY Routine 10/20/2024 HEMATOLOGY Routine 10/13/2024 from Last 3 Months Results * (ABNORMAL) HEMATOLOGY (01/12/2025) Only the most recent of14 resultswithin the time period is included. Hemoglobin 10.0(L) 12.0 - 16.0 g/dL [facility] Hemoglobin x 3 30(L) 36.0 - 48.0 % [facility] 01/12/2025 01/13/2025 7:1 9 AM EDT Narrative [facility] - 01/13/2025 Unless otherwise specified, test(s) performed at: [facility], [address] [place] [id number] REPRODUCTION ARTIST: Clyde Baac M.D. For any questions, please call customer service at FREQUENCY:OTHER Resulting Agency Comment Specimen source: Blood Caleb Gold MD LAB BLOOD ORDERABLES Final Re sult Performing Organization Address [facility] de Phone Number [facility] See order comments or contact performing lab Unknown, [place] * IMMUNO CHEMISTRY (01/05/2025) Only the most recent of3 resultswithin the time period is included. Hep B Surface Ag Negative Negative [facility] 01/05/2025 01/07/2025 11: 21 AM EDT Narrative Resulting Agency Comment Specimen source: Serum Caleb Gold MD LAB BLOOD ORDERABLES Final Re sult Performing Organization Address [facility] de Phone Number [facility] See order comments or contact performing lab Unknown, [place] * (ABNORMAL) [facility] (01/05/2025) Only the most recent of11 resultswithin the time period is included. PTH 215(H) 16 - 80 pg/mL [facility] 01/05/2025 01/07/2025 10: 48 AM EDT Narrative [facility] - 01/07/2025 Unless otherwise specified, test(s) performed at: [facility], [address] [place] [address] REPRODUCTION ARTIST: Clyde Baca M.D. For any questions, please call customer service at FREQUENCY:MONTHLY Resulting Agency Comment Specimen source: Plasma Caleb Gold MD LAB BLOOD ORDERABLES Final Re sult Performing Organization Address [facility] de Phone Number [facility] See order comments or contact performing lab Unknown, [place] * HD KINETICS (12/22/2024) Only the most recent of3 resultswithin the time period is included. % Urea Reduction 79 65 - 80 % [facility] 12/22/2024 12/24/2024 11: 16 AM EDT Narrative Resulting Agency Comment Specimen source: Plasma Caleb Gold MD LAB BLOOD ORDERABLES Final Re sult Performing Organization Address City/[facility]/ZIP Co de Phone Number [facility] See order comments or contact performing lab Unknown, [place] * POST CHEMISTRY (12/22/2024) Only the most recent of3 resultswithin the time period is included. BUN Post Dialysis 12 6 - 19 mg/dL [facility] 12/22/2024 12/24/2024 11: 16 AM EDT Narrative [facility] - 12/24/2024 Unless otherwise specified, test(s) performed at: [place] [address] REPRODUCTION ARTIST: Clyde Baca M.D. For any questions, please call customer service at FREQUENCY:OTHER Resulting Agency Comment Specimen source: Plasma Caleb Gold MD LAB BLOOD ORDERABLES Final Re sult Performing Organization Address [facility] de Phone Number [facility] See order comments or contact performing lab Unknown, [place] * [facility] (12/22/2024) Only the most recent of3 resultswithin the time period is included. eKdrt/V 1.51 [facility] eKt/V ([place]) 1.51 [facility] PCR 44.89 [facility] spKt/V Gotch [facility] nPCR_HD 1.09 [facility] WSTDKT/V 2.6 [facility] eNPCR 1.01 [facility] eKt/V Gotch 1.[facility] spKt/V (Daugirdas II) 1.80 [facility] 12/22/2024 12/22/2024 [facility] Ordering Provider LAB BLOOD ORDERABLES Final Result [facility] Contact Performing lab Unknown, [place] from Last 3 Months Insurance Medicare [place]
--- OUTSIDE RECORDS SUMMARY | 2025-01-13 10:37 | XMS_ITS | Encounter Summary ---
Author Organization [facility], Address [address] [place] [address] Phone Care Team Providers Care Multimedia Production Assistant Name Role Phone Unavailable Primary Care Provider Unavailabl e Encounter Details Date Type Department Care Team (Late st Contact Info) Description 07/15/2024 Documentation Only [facility], [address] [place] [address] Brittnee Wyatt [address] [place] [address] Social History Tobacco Use Types Packs/Day Years [...]
--- OUTSIDE RECORDS SUMMARY | 2025-01-13 10:37 | XMS_ITS | Encounter Summary ---
Author Organization [facility], Address [address] [place] [address] Phone Care Team Providers Care Patient Services Assistant Name Role Phone Unavailable Primary Care Provider Unavailabl e Encounter Details Date Type Department Care Team (Late st Contact Info) Description 01/10/2025 Treatment [facility], [address] [place] [address] Chiquis Long FNP-C [address] [place] [address] End stage renal disease; Dependence on renal dialysis Social History Tobacco Use Types Packs/Day Years Used Date Smoking Tobacco: Never Assessed Comments Unknown Sex and Gender Information Value Date Recorded Sex Assigned at Not on file Legal Sex Female 11:37 AM EST Gender Identity Not on file Sexual Orientation Not on file documented as of this encounter Miscellaneous Notes * Dialysis Note - Chiquis Long FNP-C - 01/10/2025 12:00 AM EDT Patient: Cony Goldman, 1945, 79y, F Dialysis Location: [facility] Attending Yarn Hauler: Caleb Gold Service Date: 01/10/2025 Service Provider: Chiquis Long NP I met face to face with the patient today. OVERVIEW The patient presented with ESRD on dialysis Primary cause of renal failure: Chronic kidney disease, stage 5 LAST HOSPITALIZATION Discharge Diagnosis: J45.901 Unspecified asthma with (acute) exacerbation I48.91 Unspecified atrial fibrillation E87.5 Hyperkalemia Admission Date 05/10/24 Discharge Date 05/13/24 DIALYSIS PRESCRIPTION IHD 3x Week Start date: 12/24/24 Dialyzer: FX CorAL 60 BFR: 450 DFR: Manual 500 Potassium: 2.0 Sodium: 137 EDW: 58 Duration: 3:15 Calcium: 2.50 Bicarb: 35 Rx updated on: 12/24/2024 TREATMENT ASSESSMENT BP Stand Pre 01/10/2025: 142/79 01/07/2025: 165/95 01/05/2025: 140/81 BP Sit Pre 01/10/2025: 152/79 01/07/2025: 175/93 01/05/2025: 157/84 BP Stand Post 01/10/2025: 136/84 01/07/2025: 146/88 01/05/2025: 146/72 BP Sit Post 01/10/2025: 130/77 01/07/2025: 145/85 01/05/2025: 156/88 Prescribed Tx time 01/10/2025: 3:15 01/07/2025: 3:15 01/05/2025: 3:15 Tx Duration 01/10/2025: 3:15 01/07/2025: 3:16 01/05/2025: 3:17 Missed Treatments 0 - last 30 days 0 - last 60 days FLUID ASSESSMENT EDW (kg) 01/10/2025: 58.0 01/07/2025: 58.0 01/05/2025: 58.0 Weight Pre (kg) 01/10/2025: 59.0 01/07/2025: 59.2 01/05/2025: 59.6 Weight Post (kg) 01/10/2025: 58.0 01/07/2025: 57.3 01/05/2025: 58.2 PWV (kg) 01/10/2025: 0.0 01/07/2025: -0.7 01/05/2025: 0.2 UF Rate (mL/kg/hr) 01/10/2025: 5.3 01/07/2025: 10.2 01/05/2025: 7.3 ADEQUACY ASSESSMENT spKt/V, URR 12/22/2024: 1.8, 79.0 11/24/2024: 1.66, 78.0 10/29/2024: 1.95, 81.0 ACCESS ASSESSMENT Access Type: AVFistula Access SubType: Standard Access Status: Active (In Use) - 03/31/2024 Access Location: Left Upper Arm Created: --/--/---- Flow 01/07/2025: 672 12/24/2024: 665 11/22/2024: 639 ANEMIA ASSESSMENT HGB, TSAT 01/05/2025: 10.1, 67.0 12/29/2024: 9.9, - 12/22/2024: 10.7, - Ferritin 01/05/2025: 1221.0 12/08/2024: 1029.0 11/10/2024: 1209.0 Mircera, IVP (mcg) 01/03/2025: 30 11/15/2024: 50 11/01/2024: 75 BMM ASSESSMENT PTH, Intact 01/05/2025: 215.0 12/08/2024: 79.0 11/10/2024: 167.0 Calcium, Phosphorus 01/05/2025: 8.5, 5.3 12/08/2024: 9.4, 6.1 11/10/2024: 9.0, 6.7 Vitamin D (Calcitriol) Oral (mcg) 01/10/2025: 0.75 01/07/2025: 0.75 01/05/2025: 0.75 NUTRITION ASSESSMENT Potassium, Albumin 01/05/2025: 5.1, 3.8 12/08/2024: 4.8, 3.8 11/10/2024: 5.1, 3.9 eNPCR 12/22/2024: 1.01 11/24/2024: 0.95 10/29/2024: 1.15 DIAGNOSIS Chief Complaint: N18.6 End stage renal disease Comments: Patient seen and examined. VSS with no complaints to offer. S1, S2, RRR. LS CTA bilaterally. Access patent Patient is stable. Patient data updated 01/11/2025 at 6:59 AM Signed By: Chiquis Long NP on 01/11/2025 6:59:27 AM documented in this encounter Plan of Treatment Not on file documented as of this encounter Visit Diagnoses Diagnosis End stage renal disease Dependence on renal dialysis documented in this encounter
[2025-01-13 10:53] LABS: Hematocrit 33.2 % (37.0-47.0); Hemoglobin 10.4 g/dl (12.0-16.0); Imm Gran Abs Auto 0.02 X10*3/uL (0.00-0.03); Imm Gran Pct Auto 0.5 % (0.0-0.4); Lymphocytes Absolute Auto 1.5 X10*3/uL (1.2-4.9); Mean Corpuscular HGB Conc 31.3 g/dl (31.0-35.0); Mean Corpuscular Hemoglobin 23.6 pg (27.0-33.0); Mean Corpuscular Volume 75.3 fL (80.0-98.0); NRBC Abs Auto 0.000 X10*3/uL (0.0-0.012); NRBC Pct Auto 0.0 /100WBC (0.0-0.2); Platelet Count 126 X10*3/uL (160-400); Red Blood Count 4.41 X10*6/uL (4.20-5.50); White Blood Count 4.1 X10*3/uL (4.8-10.8)
[2025-01-13 11:46] LABS: Alanine Aminotransferase 10 U/L (0-31); Albumin Level 3.9 g/dL (3.5-5.0); Alkaline Phosphatase 71 U/L (39-117); Anion Gap 14 (12-20); Aspartate Amino Transferase 25 U/L (5-31); Blood Urea Nitrogen 37 mg/dL (9-16); Calcium 8.7 mg/dL (8.4-10.2); Carbon Dioxide 31 mmol/L (22-29); Chloride 100 mmol/L (96-108); Cholesterol 230 mg/dL (<200); Estimated Glomerular Filt Rate 8; HDL Cholesterol 86 mg/dL (>40); Potassium 4.5 mmol/L (3.3-5.1); Sodium 140 mmol/L (135-145); Total Protein 7.3 g/dL (6.5-8.0); Triglycerides 50 mg/dL (<150)
[2025-01-13 12:00] LABS: Appearance Urine Clear; Glucose Urine UA Negative (Negative); PH 8.0 (5.0-9.0); Specific Gravity - Urine 1.010 (1.005-1.025); UMIC TRIGGER UACC YES
[2025-01-13 12:21] LABS: Microalbum/Creatinine Ratio Ur 879.5 ug/mg cr (<30)
== END 2025-01-13 09:37 | disposition home or self-care (01) ==
LOC: HO.LAB 09:36
PROVIDERS: PCP Nurse Practitioner Family; Visit Provider Nurse Practitioner Family
DX: Z00.00 Encounter for general adult medical examination without abnormal findings (principal); Z13.29 Encounter for screening for other suspected endocrine disorder; Z13.6 Encounter for screening for cardiovascular disorders
CPT/HCPCS: 36415; 80053; 80061; 81001; 82043; 82306; 82570; 84443; 85025

== ENCOUNTER 2025-01-23 14:52 | Outpatient (AMB) | payer MEDICARE, MEDICAID, SELFPAY ==
--- NOTE | 2025-01-23 14:54 | MHC.PC.OV ---
Vital Signs 01/23/25 15:00 01/23/25 15:19 01/23/25 15:55 01/23/25 16:12 Height 5 ft Weight 129 lb 2 oz BMI 25.2 BP 178/86 H 180/80 H 170/82 H 136/70 Blood Pressure Location Lt brachial Rt brachial Rt brachial Rt brachial Position Sitting Sitting Sitting Sitting Respiration 16 Pulse 62 72 67 Pulse Source Pulse Oximeter Auscultation Pulse Oximeter Temp 98.2 F Temp Source Oral Pulse Oximetry (%) 98 100 Oxygen Delivery Method Room Air Room Air Intake Visit Reasons: 3mos Intake Note: patient here for 3 month follow up on HTN Chemical Applicator Required: Yes Chemical Applicator Language: Patrol Sergeant Name: José Miguel barba [id number] Is last menstrual period known: No Post menopausal: No Patient : No Allergies No Known Allergies Allergy (Verified 01/23/25 15:06) Medication List - Last Reconciled 01/23/25 by Kylie Babb CNP alendronate 70 mg PO QWEEK amlodipine 5 mg PO DAILY apixaban (Eliquis) 2.5 mg PO BID 30 days carvedilol 6.25 mg PO ONCE sevelamer carbonate 800 mg PO TID Tobacco use date assessed: 01/23/25 Fall risk assessment: 1 Fall in past year Last assessed Fall Risk: 01/23/25 Dental Screening Dental Screen Date: 01/23/25 Did you have a dental visit in the last 12 months?: No Did you have a dental problem in the last 6 months where you did not have access to dental care?: No Was dental information given to patient?: No HPI HPI Comments History of Present Illness Details 79-year-old [place]er-speaking female, accompanied by her daughter, presents for hypertension and review of recent lab results. She admits to taking her medications as prescribed without adverse reactions. She has been making healthy lifestyle choices. She offers no complaints and denies acute symptoms at this time. Interpretation by a professional certified court interpreter via video. [facility] Medical History (Updated 01/23/25 @ 15:23 by Kylie Babb CNP) Kidney disease High blood pressure Asthma Family History (Updated 09/12/24 @ 08:24 by Gabbi Engel MA) Mother Asthma Hypertension Social History (Updated 09/12/24 @ 08:25 by Gabbi Engel MA) Housing: Apartment Alcohol intake: never Patient Tobacco Use Status: Never used Tobacco e-Cigarette/Vaping Use: Never Used Second Hand Smoke Exposure: No service: No Current occupational status: retired and other Current occupational exposures/hazards: No Cognitive needs: No Hearing needs: No Vision needs: No Questionnaire Thrive Questionnaire Date Thrive assessed: 09/12/24 I am a: Patient What is your living situation today?: I have a steady place to live Within the past 12 months, did the food you bought not last and you didn't have the money to get more?: Sometimes True Within the past 12 months, did you worry whether your food would run out before you got money to buy more?: Never true Do you have trouble paying for medicines?: No Do you have trouble getting transportation to medical appointments?: No Do you have trouble paying your heating and electricity bill?: No Do you have trouble taking care of your child, family member or friend?: No Do you have trouble with day-to-day activities such as bathing, preparing meals, shopping, managing finances, etc.?: No Are you currently unemployed and looking for a job?: Yes Are you interested in more education?: I choose not to answer this question Please select the resources that you would like help with: None Currently or been in a relationship where the following occur: No concerns reported THRIVE Score: 1 JUS-7 AMB Questionnaire JUS-7 Date JUS - 7 assessed: 09/12/24 Source: Developed by Drs. Len Gomez, Rylie Blackman, Juan M Borrego and colleagues, with an educational santos from [employer]. Review of Systems Const Details: Const Denies chills, Denies fatigue, Denies fever(s), Denies headache(s) and Denies weakness ENT Denies dizziness and Denies headache(s) Card Denies chest pain, Denies lightheadedness, Denies dyspnea and Denies other (Palpitations) Resp Denies cough, Denies dyspnea, Denies wheezing and Denies other ( shortness of breath) GI Denies abdominal pain, Denies melena, Denies hematochezia, Denies change in bowel habits, Denies dyspepsia and Denies nausea Denies hematuria and Denies dysuria Musc Denies abnormal gait, Denies myalgias, Denies arthralgias, Denies numbness and Denies tingling Skin/Breast Denies rash, Denies unusual bruising and Denies wounds Neuro Denies abnormal gait, Denies dizziness, Denies headache(s), Denies memory loss, Denies numbness, Denies Sensory deficit (Neuro), Denies tingling and Denies weakness Psych Denies anxiety, Denies depression, Denies memory loss Endo Denies cold intolerance, Denies fatigue, Denies heat intolerance, Denies polydipsia and Denies polyuria Aller/Immun Denies wheezing Physical exam (Primary Care) Vital Signs: Last Vital Signs Temp 98.2 F 01/23/25 15:00 Pulse 67 01/23/25 15:55 Resp 16 01/23/25 15:00 BP 136/70 01/23/25 16:12 Pulse Ox 100 01/23/25 15:55 Oxygen Delivery Method Room Air 01/23/25 15:55 BMI result Body Mass Index 25.2 Tobacco/Smoking Status: Tobacco use Status Tobacco use date assessed 01/23/25 01/23/25 15:03 Patient Tobacco Use Status Never used Tobacco 01/23/25 14:55 e-Cigarette/Vaping Use Never Used 01/23/25 14:55 Thrive Assessment: Date of Thrive Assessment Date Thrive assessed 09/12/24 01/23/25 14:55 Currently or been in a relationship where the following occur: No concerns reported Const Other: General: no acute distress and well developed Nutritional Appearance: well nourished Orientation/consciousness: patient oriented x3 HENMT Head: Yes normocephalic and Yes atraumatic Eyes General: appearance normal, both eyes and all related structures Pupils: Equal, round and reactive pupils present EOM: EOMs intact bilaterally Resp Effort & Inspection: normal respiratory effort Auscultation: clear to auscultation bilaterally Cardio Rate: regular rate Rhythm: regular rhythm Heart sounds: S1 normal heart sound present, S2 normal heart sound present, no gallops, no murmurs and no rubs GI Palpation (GI): No Abdominal aortic bruit present, Soft to palpation, nontender, No hepatosplenomegaly present and No Rebound tenderness present Auscultation: normal bowel sounds General: Yes no CVA tenderness Back/Spine/Pelvis Back: no CVA tenderness Cervical Spine: cervical ROM normal and No Cervical spine tenderness Thoracic/Lumbar Spine: thoraco-lumbar ROM normal, No pain with thoraco-lumbar ROM, No thoracic spinal tenderness and No lumbar spinal tenderness Extrem General: Yes normal to inspection, No edema and No calf tenderness Skin General: warm and dry. Normal skin color. Normal skin turgor Neuro General: patient oriented x3, gait normal and no focal neuro deficit Cranial nerves: Yes Equal, round and reactive pupils present Cognition (Neuro): normal cognition Gait exam (Neuro): Normal gait present Sensory Exam: No Sensory deficit (Neuro) Psych Appearance: grossly normal Affect: normal affect Attitude: cooperative Thought process: Normal thought process present Coding Level of Care Code Est Pt Level 4 (62175) Diagnoses High blood pressure I10 Hypercholesterolemia E78.00 Thrombocytopenia D69.6 End stage renal disease N18.6 Microcytic anemia D50.9 Microalbuminuria R80.9 Osteoporosis M81.0 Assessment & Plan Assessment & Plan (1) High blood pressure: Code(s): I10 - Essential (primary) hypertension Category: Medical Plan: Initial resting blood pressure was 180/80. Blood pressure improved to 136/70 twenty minute following administration of 0.1 mg of clonidine in the office. Blood pressure goal is less than 130/80. Amlodipine increased to 10 mg daily; advised to take as prescribed. Instructed on the risks, benefits, and potential adverse reactions of the medication. Low-sodium diet encouraged. Follow-up in 1 month or sooner with symptoms or concerns. Verbalized understanding and agreed with the plan. (2) Hypercholesterolemia: Code(s): E78.00 - Pure hypercholesterolemia, unspecified Category: Medical Plan: Recent total cholesterol and LDL levels are elevated, 230 and 134 respectively. Advised to limit foods high in saturated fat and avoid foods high in trans fat. Routine exercise encouraged. Fast for 10-12 hours, may drink water, and perform lipid panel blood work a few days before next visit. Follow-up in 2 months. Return sooner with symptoms or concerns. Verbalized understanding and agreed with the plan. (3) Thrombocytopenia: Code(s): D69.6 - Thrombocytopenia, unspecified Category: Medical Plan: Recent platelet level is low, 126. Likely due to end-stage renal disease. Will repeat platelet level to monitor trends and make changes as needed. (4) End stage renal disease: Code(s): N18.6 - End stage renal disease Category: Medical Plan: Recent BUN and creatinine levels are elevated, 37 and 5.4 respectively. Continue current treatment regimen. She is followed by [facility] and goes to dialysis weekly on , Thu, and Thu. (5) Microcytic anemia: Code(s): D50.9 - Iron deficiency anemia, unspecified Category: Medical Plan: Recent H&H is slightly low, 10.4 and 33.2 respectively, MCV is slightly low, 75.3. Likely due to end-stage renal disease, although iron-deficiency anemia is possible. Will recheck CBC and check iron profile, ferritin, vitamin B12, and folate levels. Will make changes as needed. Verbalized understanding and agreed with the plan. (6) Microalbuminuria: Code(s): R80.9 - Proteinuria, unspecified Category: Medical Plan: Recent urine microalbumin/creatinine ratio is significantly elevated, 879.5. Likely due to end-stage renal disease. Adequate hydration with water encouraged. Continue dialysis as planned. Verbalized understanding and agreed with the plan. (7) Osteoporosis: Code(s): M81.0 - Age-related osteoporosis without current pathological fracture Category: Medical Plan: Recent DEXA scan revealed osteoporosis. Continue to take alendronate as prescribed. She missed an appointment to establish with [facility] endocrinology at the end of November. Encouraged to call [facility] endocrinology to reschedule appointment to establish care. Verbalized understanding and agreed with the plan. Orders: Orders Complete Blood Count no Diff 01/23/25 D50.9 - Iron deficiency anemia, unspecified, D69.6 - Thrombocytopenia, unspecified Vitamin B12 and Folate 01/23/25 D50.9 - Iron deficiency anemia, unspecified Lipid Panel 2 Months E78.00 - Pure hypercholesterolemia, unspecified Ferritin 01/23/25 D50.9 - Iron deficiency anemia, unspecified IRON PROFILE 01/23/25 D50.9 - Iron deficiency anemia, unspecified Medications: New amlodipine 10 mg PO DAILY 30 tabs 3RF 30 days
[2025-01-23 15:00] VITALS: BP 178/86; PULSE 62; RESP 16; TEMP 36.8; O2SAT 98; BMI 25.2
[2025-01-23 15:19] VITALS: BP 180/80; PULSE 72
[2025-01-23 15:55] VITALS: BP 170/82; PULSE 67; O2SAT 100
[2025-01-23 16:12] VITALS: BP 136/70
--- OUTSIDE RECORDS SUMMARY | 2025-01-23 16:21 | XMS_ITS | Encounter Summary ---
Author Organization [facility], Address [address] [place] [address] Phone Care Team Providers Care Employee Development Manager Name Role Phone Unavailable Primary Care Provider Unavailabl e Encounter Details Date Type Department Care Team (Late st Contact Info) Description 05/26/2024 Documentation Only [facility], [address] [place] [address] Peace Diaz Social History Tobacco [...]
--- OUTSIDE RECORDS SUMMARY | 2025-01-23 16:21 | XMS_ITS | Encounter Summary ---
Author Organization [facility], Address [address] [place] [address] Phone Care Team Providers Care Ammonium Sulfate Operator Name Role Phone Unavailable Primary Care Provider Unavailabl e Encounter Details Date Type Department Care Team (Late st Contact Info) Description 01/19/2025 Orders Only [facility] [address] [place] [address] Caleb Gold MD [address] [place] [address] Social History Tobacco Use Types [...] Priority Date/Time Associated Diagnosis Comments HEMATOLOGY Routine 01/19/2025 documented in this encounter Results * (ABNORMAL) HEMATOLOGY (01/19/2025) Hemoglobin 9.8(L) 12.0 - 16.0 g/dL [facility] Hemoglobin x 3 29.4(L) 36.0 - 48.0 % [facility] 01/19/2025 01/20/2025 7:4 7 AM EDT Narrative [facility] - 01/20/2025 Unless otherwise specified, test(s) performed at: [facility], [address] [place] [address] CLOSET BUILDER: Clyde Baca M.D. For any questions, please call customer service at FREQUENCY:OTHER Resulting Agency Comment Specimen source: Blood us Caleb Gold MD LAB BLOOD ORDERABLES Final Re sult [facility] See order comments or contact performing lab Unknown, [place] documented in this encounter Visit Diagnoses Not on filedocumented in this encounter
--- OUTSIDE RECORDS SUMMARY | 2025-01-23 16:21 | XMS_ITS | Encounter Summary ---
Author Organization [facility], Address [address] [place] [address] Phone Care Team Providers Care Professor Of French Name Role Phone Unavailable Primary Care Provider Unavailabl e Encounter Details Date Type Department Care Team (Late st Contact Info) Description 05/26/2024 Documentation Only [facility], [address] [place] [address] Peace Diaz Social History Tobacco [...]
--- OUTSIDE RECORDS SUMMARY | 2025-01-23 16:21 | XMS_ITS | Encounter Summary ---
Author Organization [facility], Address [address] [place] [address] Phone Care Team Providers Care Obstetrics Technician Name Role Phone Unavailable Primary Care Provider Unavailabl e Encounter Details Date Type Department Care Team (Late st Contact Info) Description 07/15/2024 Documentation Only [facility], [address] [place] [address] Brittnee Wyatt [address] [place] [phone] Social History Tobacco Use Types Packs/Day [...]
--- OUTSIDE RECORDS SUMMARY | 2025-01-23 16:21 | XMS_ITS | Clinical Summary ---
Author Organization [facility] Facility Address [address] [place] [id number] Care Team Providers Care Manager Pe Name Role Phone Unavailable Primary Care Provider Unavailabl e Encounters Date Type Department Care Team Description 01/19/2025 Orders Only [facility] [address] [address] Caleb Gold MD 01/12/2025 Orders Only [facility] [address] [address] Caleb Gold MD 01/10/2025 Treatment [facility] [address] [place] [address] Chiquis Long FNP-C End stage renal disease; Dependence on renal dialysis 01/05/2025 Orders Only [facility] [address] [address] Caleb Gold MD 01/03/2025 Treatment [facility], [address] [place] [address] Chiquis Long FNP-C End stage renal disease; Dependence on renal dialysis 12/29/2024 Orders Only [facility] [address] [address] Caleb Gold MD 12/29/2024 Treatment [facility] [address] [place] [address] Parviz Sweeney MD End stage renal disease; Dependence on renal dialysis 12/22/2024 Orders Only [facility] [address] [address] Caleb Gold MD 12/22/2024 Treatment [facility] [address] [place] [address] Parviz Sweeney MD End stage renal disease; Dependence on renal dialysis 12/20/2024 Treatment [facility], [address] [place] [address] Chiquis Long FABRICATION OPERATOR-C End stage renal disease; Dependence on renal dialysis 12/15/2024 Orders Only [facility] [address] [address] Caleb Gold MD 12/13/2024 Treatment [facility], [address] [place] [address] Chiquis Long FABRICATION OPERATOR-C End stage renal disease; Dependence on renal dialysis 12/08/2024 Orders Only [facility] [address] [address] Caleb Gold MD 12/01/2024 Orders Only [facility] [address] [address] Caleb Gold MD 11/29/2024 Treatment [facility], [address] [place] [address] Parviz Sweeney MD End stage renal disease; Dependence on renal dialysis 11/24/2024 Orders Only [facility] [address] [address] Caleb Gold MD 11/22/2024 Treatment [facility], [address] [place] [address] Chiquis Long FNP-C End stage renal disease; Dependence on renal dialysis 11/17/2024 Orders Only [facility] [address] [address] Caleb Gold MD 11/12/2024 Treatment [facility], [address] [place] [address] Chiquis Long FNP-C End stage renal disease; Dependence on renal dialysis 11/10/2024 Treatment [facility], [address] [place] [address] Parviz Sweeney MD End stage renal disease; Dependence on renal dialysis 11/10/2024 Orders Only [facility] [address] [address] Caleb Gold MD 11/03/2024 Orders Only [facility] [address] [address] Caleb Gold MD 11/03/2024 Treatment [facility], [address] [place] [address] aPrviz Sweeney MD End stage renal disease; Dependence on renal dialysis 10/29/2024 Orders Only [facility] [address] [address] Caleb Gold MD 10/27/2024 Orders Only [facility] [address] [address] Caleb Gold MD 10/25/2024 Treatment [facility], [address] [place] [address] Chiquis Long FNP-C End stage renal disease; Dependence on renal dialysis from Last 3 Months Social History Tobacco [...] Date/Time Associated Diagnosis Comments HEMATOLOGY Routine 01/19/2025 HEMATOLOGY Routine 01/12/2025 CHEMISTRY Routine 01/05/2025 IMMUNO [...] 10/29/2024 CHEMISTRY Routine 10/27/2024 HEMATOLOGY Routine 10/27/2024 from Last 3 Months Results * (ABNORMAL) HEMATOLOGY (01/19/2025) Only the most recent of13 resultswithin the time period is included. Hemoglobin 9.8(L) 12.0 - 16.0 g/dL [facility] Hemoglobin x 3 29.4(L) 36.0 - 48.0 % [facility] 01/19/2025 01/20/2025 7:4 7 AM EDT Narrative [facility] - 01/20/2025 Unless otherwise specified, test(s) performed at: [facility], [address] [place] [id number] W[employer] T[employer] ENGINEER: Clyde Baca M.D. For any questions, please call customer service at FREQUENCY:OTHER Resulting Agency Comment Specimen source: Blood us Caleb Gold MD LAB BLOOD ORDERABLES Final Re sult [facility] See order comments or contact performing lab Unknown, [place] * IMMUNO CHEMISTRY (01/05/2025) Only the most recent of3 resultswithin the time period is included. Hep B Surface Ag Negative Negative [facility] 01/05/2025 01/07/2025 11: 21 AM EDT Narrative Resulting Agency Comment Specimen source: Serum Caleb Gold MD LAB BLOOD ORDERABLES Final Re sult Performing Organization Address [facility] de Phone Number [facility] See order comments or contact performing lab Unknown, [place] * (ABNORMAL) [facility] (01/05/2025) Only the most recent of11 resultswithin the time period is included. PTH 215(H) 16 - 80 pg/mL [facility] 01/05/2025 01/07/2025 10: 48 AM EDT Narrative [facility] - 01/07/2025 Unless otherwise specified, test(s) performed at: [facility], [address] [place] [address] WIND TUNNEL ENGINEER: Clyde Baca M.D. For any questions, please call customer service at FREQUENCY:MONTHLY Resulting Agency Comment Specimen source: Plasma Caleb Gold MD LAB BLOOD ORDERABLES Final Re sult Performing Organization Address [facility] de Phone Number [facility] See order comments or contact performing lab Unknown, [place] * HD KINETICS (12/22/2024) Only the most recent of3 resultswithin the time period is included. % Urea Reduction 79 65 - 80 % [facility] 12/22/2024 12/24/2024 11: 16 AM EDT Narrative Resulting Agency Comment Specimen source: Plasma Caleb Gold MD LAB BLOOD ORDERABLES Final Re sult Performing Organization Address [facility] de Phone Number [facility] See order comments or contact performing lab Unknown, [place] * POST CHEMISTRY (12/22/2024) Only the most recent of3 resultswithin the time period is included. BUN Post Dialysis 12 6 - 19 mg/dL [facility] 12/22/2024 12/24/2024 11: 16 AM EDT Narrative [facility] - 12/24/2024 Unless otherwise specified, test(s) performed at: [facility], [address] [place] [phone] W[employer] ENGINEER: Clyde Baca M.D. For any questions, please [...] PCR 44.89 [facility] spKt/V Gotch 1.83 [facility] nPCR_HD 1.09 [facility] WSTDKT/V 2.6 [facility] eNPCR 1.01 [facility] eKt/V Gotch 1.51 [facility] spKt/V (Daugirdas II) 1.80 [facility] 12/22/2024 12/22/2024 [facility] [place]ing Provider LAB BLOOD ORDERABLES Final Result [facility] Contact Performing lab RYNE Russo from Last [address] [place] [id number] Medicare Medicaid [place]
== END 2025-01-23 16:15 | disposition home or self-care (01) ==
LOC: HO.HMCFM 14:53
PROVIDERS: PCP Nurse Practitioner Family; Visit Provider Nurse Practitioner Family
DX: I12.0 Hypertensive chronic kidney disease with stage 5 chronic kidney disease or end stage renal disease (principal); E78.00 Pure hypercholesterolemia, unspecified; D69.6 Thrombocytopenia, unspecified; N18.6 End stage renal disease; D50.9 Iron deficiency anemia, unspecified; R80.9 Proteinuria, unspecified; M81.0 Age-related osteoporosis without current pathological fracture

== ENCOUNTER 2025-01-26 17:03 | Inpatient (IN) | payer MEDICARE, MEDICAID, SELFPAY ==
--- NOTE | ~2025-01-26 | XR_ITS ---
CLINICAL HISTORY: chest pain 2 view chest x-ray Comparison: None provided Findings: The lungs are clear. TAVR changes. No acute fracture. IMPRESSION: 1. No acute cardiopulmonary abnormality. This document has been electronically signed by: Denice White MD on 01/26/2025 18:21:40
--- NOTE | 2025-01-26 17:04 | ECG_ITS ---
Test Reason : cp Blood Pressure : */* mmHG Vent. Rate : 62 BPM Atrial Rate : 62 BPM P-R Int : 164 ms QRS Dur : 90 ms QT Int : 418 ms P-R-T Axes : 82 -10 46 degrees QTcB Int : 424 ms Normal sinus rhythm Moderate voltage criteria for LVH, may be normal variant ( R in aVL , Christopher product ) Borderline ECG No previous ECGs available Referred By: Shellie Fang Electronically Signed By: Mickey Sellers
[2025-01-26 17:22] VITALS: BP 190/77; PULSE 63; RESP 18; TEMP 36.1; O2SAT 98; BMI 25.2
--- NOTE | 2025-01-26 17:22 | ED.GENADULT ---
HPI - General Adult General Chief complaint: Chest Pain Stated complaint: Cp Time Seen by Provider: 01/26/25 20:59 Source: patient Mode of arrival: ambulatory Limitations: no limitations History of Present Illness ED Provider: Gio NINO HPI narrative: The patient is a 79-year-old female with a history of hyperlipidemia, osteoporosis, hypertension with the associated ESRD receiving dialysis Thursday and Thursday, presenting to the ED for evaluation of hypertension and subsequent chest pain which began during her dialysis treatment today. Patient reports she was part way through her dialysis treatment when dialysis staff noted patient was hypertensive with systolic BP in the 200s. The patient's dialysis was stopped prior to completion and patient was sent to the ED for evaluation. The patient reports after dialysis was stopped she began experiencing mild, nonradiating chest discomfort described as a pressure. Patient denies associated hemoptysis, pleurisy, radiation to the back, tearing sensation, dizziness, near-syncope, syncope, shortness of breath, cough, abdominal pain, nausea, vomiting, diarrhea or other acute somatic complaint. The patient reports pain as improved since arriving in the ED. Patient remains hypertensive in the ED with BP 198/90. Patient reports she is compliant with her antihypertensive medications which she takes every morning. Related Data Home Medications ?Medication ?Instructions ?Recorded ?Confirmed carvedilol 6.25 mg tablet 6.25 mg PO ONCE 09/12/24 01/23/25 sevelamer carbonate 800 mg tablet 800 mg PO TID 09/12/24 01/23/25 Previous Rx's ?Medication ?Instructions ?Recorded alendronate 70 mg tablet 70 mg PO QWEEK #12 tabs 11/30/24 apixaban 2.5 mg tablet (Eliquis) 2.5 mg PO BID 30 days #60 tabs 12/19/24 amlodipine 10 mg tablet 10 mg PO DAILY 30 days #30 tabs 01/23/25 Allergies Allergy/AdvReac Type Severity Reaction Status Date / Time No Known Allergies Allergy Verified 01/26/25 17:30 Review of Systems Review of Systems: Yes all other systems are reviewed and are negative [facility] Past Medical History Medical History (Updated 01/26/25 @ 22:21 by Gio Trimble PA-C) Kidney disease High blood pressure Asthma Family History Family History (Updated 09/12/24 @ 08:24 by Gabbi Engel MA) Mother Asthma Hypertension Social History Social History (Updated 09/12/24 @ 08:25 by Gabbi Engel MA) Housing: Apartment Alcohol intake: never Patient Tobacco Use Status: Never used Tobacco Smoked in Last 30 Days: No e-Cigarette/Vaping Use: Never Used Second Hand Smoke Exposure: No Use of substances other than those prescribed or required for medical reasons: No Advance Directives: No Advance Directives Information Provided: No Do you have a plan to hurt others: No Plan service: No Current occupational status: retired and other Current occupational exposures/hazards: No Cognitive needs: No Hearing needs: No Vision needs: No Physical Exam ED Vital Signs: Vital Signs - 24 hr 01/26/25 17:22 01/26/25 18:03 01/26/25 20:42 Temperature 97 F 98.1 F 97.4 F Pulse Rate 63 64 63 Respiratory Rate 18 14 Blood Pressure 190/77 H 208/96 H 198/90 H Pulse Oximetry 98 98 98 Oxygen Delivery Method Room Air Room Air Room Air 01/26/25 21:48 Temperature Pulse Rate 65 Respiratory Rate 18 Blood Pressure Pulse Oximetry Oxygen Delivery Method BMI result Body Mass Index 25.2 CONSTITUTIONAL: The patient appears chronically ill, otherwise non-toxic and in no acute distress. Vital signs as documented. HEAD: Atraumatic, normocephalic. EYES: EOMs grossly intact, pupils equal, conjunctiva clear, no exudate. ENT: Nares patent, no discharge. Airway patent, no audible stridor, visible mucosa is pink and moist without noted lesions. NECK: Trachea is midline, no obvious masses or gross abnormalities. CHEST: Symmetric movement, normal appearance. LUNGS: LS present and CTAB, no w/r/r. Non-labored work of breathing. CARDIAC: Regular Rhythm, S1/S2 appreciated, there is a grade 3/6 holosystolic murmur heard best over the left sternal border. Patient reports known history of murmur. ABDOMEN: Abdomen soft and non-tender x4 quadrants, no palpable masses or organomegaly. : Deferred. EXTREMITIES: Normal tone, moves all extremities spontaneously without reported pain. No obvious acute injury or deformity noted. NEURO: Alert and oriented x3, CN II-XII appear grossly intact. Cerebellar Functioning grossly intact. No obvious sensory or motor deficits. Speech clear and appropriate. PSYCH: normal affect, appropriate eye contact, fluid speech, with appropriate response to questioning. No reported suicidality or homicidality. SKIN: Warm, dry, color appropriate, normal turgor. No rashes noted. Course Course Course Narrative: Rapid medical examination performed in triage by Shellie Fang PA-C: Patient is a 79 year old assigned female at presenting to the emergency department with chest pain. Detailed physical exam and review of systems are deferred to the health unit supervisor. EKG, labs, imaging ordered. Patient placed back in the waiting room pending room availability and results. Medications Administered Discontinued Medications Generic Name Dose Route Start Last Admin Trade Name Freq PRN Reason Stop Dose Admin Albuterol Sulfate 2.5 mg 01/26/25 21:34 01/26/25 21:46 Albuterol Sulfate (0.083%) 2.5 Mg/3 Ml Vial.Neb INHALE 01/26/25 21:35 2.5 mg ONCE ONE Administration Medical Decision Making Medical Decision Making MDM Narrative: 9:58 PM 01/26/2025 (Trav NINO): The patient is a 79-year-old female with a history of hyperlipidemia, osteoporosis, hypertension with associated ESRD receiving dialysis Thursday and Thursday, presenting to the ED for evaluation of hypertension and subsequent chest pain which began during her dialysis treatment today. Patient reports she was part way through her dialysis treatment when dialysis staff noted patient was hypertensive with systolic BP in the 200s. The patient's dialysis was stopped prior to completion and patient was sent to the ED for evaluation. The patient reports after dialysis was stopped she began experiencing mild, nonradiating chest discomfort described as a pressure. Patient denies associated hemoptysis, pleurisy, radiation to the back, tearing sensation, dizziness, near-syncope, syncope, shortness of breath, cough, abdominal pain, nausea, vomiting, diarrhea or other acute somatic complaint. The patient reports pain as improved since arriving in the ED. Patient remains hypertensive in the ED with BP 198/90. Patient reports she is compliant with her antihypertensive medications which he takes every morning. The patient's exam is benign, no acute findings. The patient's laboratory evaluation demonstrates no leukocytosis or significant change in baseline anemia. The patient's renal function is consistent with ESRD. The patient's electrolytes demonstrated hyperkalemia 5.3. EKG shows question peaked T-waves in V4 and V5, no ischemia, troponin [place]. [place] [address], without previous for comparison. The patient's chest x-ray shows no acute cardiopulmonary process. The patient will be treated with hyperkalemia protocol due to question peaked T-waves on EKG. We will treat hypertension with Lopressor. Ultimately patient likely needs to complete dialysis, we will plan to admit patient for dialysis and hyperkalemia. Admission/Observation Consideration of admission/observation: Escalation of care including admission/observation considered Lab Data MDM Lab Attestation statement: I reviewed the patient's lab results. 01/26/25 18:01 01/26/25 18:01 Labs: Lab Results 01/26/25 Range/Units 18:01 WBC 4.0 L (4.8-10.8) X10*3/uL RBC 4.50 (4.20-5.50) X10*6/uL Hgb 10.4 L (12.0-16.0) g/dl Hct 33.6 L (37.0-47.0) % MCV 74.7 L (80.0-98.0) fL MCH 23.1 L (27.0-33.0) pg MCHC 31.0 (31.0-35.0) g/dl RDW 16.2 H (11.0-16.0) % Plt Count 107 L (160-400) X10*3/uL MPV TNP Immature Gran % (Auto) 0.3 (0.0-0.4) % Neut % (Auto) 36.0 L (45-73) % Lymph % (Auto) 44.1 H (20-40) % [place] % (Auto) 12.1 H (2-11) % Eos % (Auto) 6.0 H (0-4) % Baso % (Auto) 1.5 (0-2) % Lymph # (Auto) 1.8 (1.2-4.9) X10*3/uL [place] # (Auto) 0.5 (0.1-1.2) X10*3/uL Eos # (Auto) 0.2 (0.0-0.4) X10*3/uL Baso # (Auto) 0.1 (0.0-0.2) X10*3/uL Abs Immat Gran (auto) 0.01 (0.00-0.03) X10*3/uL Absolute Neuts (auto) 1.4 L (2.0-8.3) x10*3/uL Absolute Nucleated RBC 0.000 (0.0-0.012) X10*3/uL Nucleated RBC % (auto) 0.0 (0.0-0.2) /100WBC Smear Tech's Comments VERIFIED Sodium 138 (135-145) mmol/L Potassium 5.3 H (3.3-5.1) mmol/L Chloride 101 (96-108) mmol/L Carbon Dioxide 25 (22-29) mmol/L Anion Gap 17 (12-20) BUN 63 H (9-16) mg/dL Creatinine 6.78 H* (0.5-1.4) mg/dL Estim Creat Clear Calc 5.5 Estimated GFR 6 Random Glucose 77 (60-115) mg/dL Calcium 9.0 (8.4-10.2) mg/dL Magnesium 2.6 (1.6-2.6) mg/dL Total Bilirubin 0.5 (0.0-1.0) mg/dL AST 20 (5-31) U/L ALT 9 (0-31) U/L Alkaline Phosphatase 72 (39-117) U/L Troponin I High Sens 11.8 (<3.5-17.0) ng/L NT-Pro-B Natriuret Pep 77255.4 H (<300) pg/mL Total Protein 7.7 (6.5-8.0) g/dL Albumin 4.2 (3.5-5.0) g/dL Discharge Plan Discharge Clinical Impression: Chest pain, Acute hyperkalemia, Hypertension, End stage renal disease Patient Disposition: Admitted As Inpatient Print Language: Guamanian
[2025-01-26 18:03] VITALS: BP 208/96; PULSE 64; TEMP 36.7; O2SAT 98
[2025-01-26 18:21] LABS: Imm Gran Abs Auto 0.01 X10*3/uL (0.00-0.03); NRBC Abs Auto 0.000 X10*3/uL (0.0-0.012); NRBC Pct Auto 0.0 /100WBC (0.0-0.2); SCAN SMEAR FLAG 1
[2025-01-26 18:23] LABS: Hematocrit 33.6 % (37.0-47.0); Hemoglobin 10.4 g/dl (12.0-16.0); Imm Gran Pct Auto 0.3 % (0.0-0.4); Lymphocytes Absolute Auto 1.8 X10*3/uL (1.2-4.9); MANUAL DIFF FLAG SCAN; Mean Corpuscular HGB Conc 31.0 g/dl (31.0-35.0); Mean Corpuscular Hemoglobin 23.1 pg (27.0-33.0); Mean Corpuscular Volume 74.7 fL (80.0-98.0); PLT CLUMP 1; Red Blood Count 4.50 X10*6/uL (4.20-5.50)
[2025-01-26 18:24] LABS: PLT ABN DIST 1
[2025-01-26 18:26] LABS: Alanine Aminotransferase 9 U/L (0-31); Albumin Level 4.2 g/dL (3.5-5.0); Alkaline Phosphatase 72 U/L (39-117); Anion Gap 17 (12-20); Aspartate Amino Transferase 20 U/L (5-31); Blood Urea Nitrogen 63 mg/dL (9-16); Calcium 9.0 mg/dL (8.4-10.2); Carbon Dioxide 25 mmol/L (22-29); Chloride 101 mmol/L (96-108); Creatinine Clr Calc Pharmacy 5.5; Estimated Glomerular Filt Rate 6; Magnesium 2.6 mg/dL (1.6-2.6); Potassium 5.3 mmol/L (3.3-5.1); Sodium 138 mmol/L (135-145); Total Protein 7.7 g/dL (6.5-8.0)
[2025-01-26 18:33] LABS: NT Pro B Type Natriuretic Pept 14990.4 pg/mL (<300); Troponin-I High Sensitivity 11.8 ng/L (<3.5-17.0)
[2025-01-26 18:39] LABS: Platelet Count 107 X10*3/uL (160-400); White Blood Count 4.0 X10*3/uL (4.8-10.8)
--- OUTSIDE RECORDS SUMMARY | 2025-01-26 18:53 | XMS_ITS | Clinical Summary ---
Author Organization [facility] Facility Address [address] [place] [id number] Care Team Providers Care Composing Room Machinist Name Role Phone Unavailable Primary Care Provider Unavailabl e Encounters Date Type Department Care Team Description 01/24/2025 Treatment [facility] [address] [place] [address] Chiquis Long FNP-C End stage renal disease; Dependence on renal dialysis 01/19/2025 Orders Only [facility] [address] [address] Caleb Gold MD 01/12/2025 Orders Only [facility] [address] [address] Caleb Gold MD 01/10/2025 Treatment [facility] [address] [place] [address] Chiquis Long FNP-C End stage renal disease; Dependence on renal dialysis 01/05/2025 Orders Only [facility] [address] [address] Caleb Gold MD 01/03/2025 Treatment [facility] [address] [place] [address] Chiquis Long FNP-C End stage renal disease; Dependence on renal dialysis 12/29/2024 Orders Only [facility] [address] [address] Caleb Gold MD 12/29/2024 Treatment [facility] [address] [place] [address] Parviz Sweeney MD End stage renal disease; Dependence on renal dialysis 12/22/2024 Orders Only [facility] [address] [address] Caleb Gold MD 12/22/2024 Treatment [facility] [address] [place] [address] Parviz Sweeney MD End stage renal disease; Dependence on renal dialysis 12/20/2024 Treatment [facility] [address] [place] [address] Chiquis Long FNP-C End stage renal disease; Dependence on renal dialysis 12/15/2024 Orders Only [facility] [address] [address] Caleb Gold MD 12/13/2024 Treatment [facility] [address] [place] [address] Chiquis Long FNP-C End stage renal disease; Dependence on renal dialysis 12/08/2024 Orders Only [facility] [address] [place] [address] Caleb Gold MD 12/01/2024 Orders Only [facility] [address] [address] Caleb Gold MD 11/29/2024 Treatment [facility] [address] [place] [address] Parviz Sweeney MD End stage renal disease; Dependence on renal dialysis 11/24/2024 Orders Only [facility] [address] [address] Caleb Gold MD 11/22/2024 Treatment [facility] [address] [place] [address] Chiquis Long, EQUAL OPPORTUNITY SPECIALIST-C End stage renal disease; Dependence on renal dialysis 11/17/2024 Orders Only [facility] [address] [address] Caleb Gold MD 11/12/2024 Treatment [facility] [address] [place] [address] Chiquis Long, EQUAL OPPORTUNITY SPECIALIST-C End stage renal disease; Dependence on renal dialysis 11/10/2024 Treatment [facility] [address] [place] [address] Parviz Sweeney MD End stage renal disease; Dependence on renal dialysis 11/10/2024 Orders Only [facility] [address] [address] Caleb Gold MD 11/03/2024 Orders Only [facility] [address] [address] Caleb Gold MD 11/03/2024 Treatment [facility] [address] [place] [address] Parviz Sweeney MD End stage renal disease; Dependence on renal dialysis 10/29/2024 Orders Only [facility] [address] [address] Caleb Gold MD 10/27/2024 Orders Only [facility] [address] [address] Caleb Gold MD from Last 3 Months [...] CHEMISTRY Routine 11/03/2024 HEMATOLOGY Routine 11/03/2024 [facility] RESULTS Routine 10/29/2024 HD KINETICS Routine 10/29/2024 POST CHEMISTRY Routine 10/29/2024 CHEMISTRY Routine 10/29/2024 CHEMISTRY Routine 10/27/2024 HEMATOLOGY Routine 10/27/2024 from Last 3 Months Results * (ABNORMAL) HEMATOLOGY (01/19/2025) Only the most recent of13 resultswithin the time period is included. Hemoglobin 9.8(L) 12.0 - 16.0 g/dL [facility] Hemoglobin x 3 29.4(L) 36.0 - 48.0 % [facility] 01/19/2025 01/20/2025 7:4 7 AM EDT Narrative [facility] - 01/20/2025 Unless otherwise specified, test(s) performed at: [facility], [address] [place] [id number] ACCOUNTS RECEIVABLE COLLECTOR: Clyde Baca M.D. For any questions, please call customer service at FREQUENCY:OTHER Resulting Agency Comment Specimen source: Blood us Caleb Gold MD LAB BLOOD ORDERABLES Final Re sult [facility] See order comments or contact performing lab Unknown, [place] * IMMUNO CHEMISTRY (01/05/2025) Only the most recent of3 resultswithin the time period is included. Hep B Surface Ag Negative Negative [facility] 01/05/2025 01/07/2025 11: 21 AM EDT Narrative Resulting Agency Comment Specimen source: Serum Caleb Gold MD LAB BLOOD ORDERABLES Final Re sult Performing Organization Address [facility] de Phone Number [facility] See order comments or contact performing lab Unknown, [place] * (ABNORMAL) [facility] (01/05/2025) Only the most recent of11 resultswithin the time period is included. PTH 215(H) 16 - 80 pg/mL [facility] 01/05/2025 01/07/2025 10: 48 AM EDT Narrative [facility] - 01/07/2025 Unless otherwise specified, test(s) performed at: [facility], [address] [place] [address] ACCOUNTS RECEIVABLE COLLECTOR: Clyde Baca M.D. For any questions, please call customer service at FREQUENCY:MONTHLY Resulting Agency Comment Specimen source: Plasma Caleb Gold MD LAB BLOOD ORDERABLES Final Re sult Performing Organization Address [facility] de Phone Number [facility] See order comments or contact performing lab Unknown, [place] * HD KINETICS (12/22/2024) Only the most recent of3 resultswithin the time period is included. % Urea Reduction 79 65 - 80 % [facility] 12/22/2024 12/24/2024 11: 16 AM EDT Narrative Resulting Agency Comment Specimen source: Plasma Caleb Gold MD LAB BLOOD ORDERABLES Final Re sult Performing Organization Address [facility] de Phone Number [facility] See order comments or contact performing lab Unknown, [place] * POST CHEMISTRY (12/22/2024) Only the most recent of3 resultswithin the time period is included. BUN Post Dialysis 12 6 - 19 mg/dL [facility] 12/22/2024 12/24/2024 11: 16 AM EDT Narrative [facility] - 12/24/2024 Unless otherwise specified, test(s) performed at: [facility], [address] [place] [id number] ACCOUNTS RECEIVABLE COLLECTOR: Clyde Baca M.D. For any questions, please [...] (Daugirdas II) 1.80 [facility] 12/22/2024 12/22/2024 [facility] Ordering Provider LAB BLOOD ORDERABLES Final Result [facility] Contact Performing lab RYNE Russo from Last [address] [place] [id number] Medicare Medicaid [place]
--- OUTSIDE RECORDS SUMMARY | 2025-01-26 18:53 | XMS_ITS | Encounter Summary ---
Author Organization [facility], Address [address] [place] [address] Phone Care Team Providers Care Sr. Manager Corporate Communications Name Role Phone Unavailable Primary Care Provider Unavailabl e Encounter Details Date Type Department Care Team (Late st Contact Info) Description 05/26/2024 Documentation Only [facility], [address] [place] [address] ePace Diaz Social History Tobacco Use Types Packs/Day [...]
--- OUTSIDE RECORDS SUMMARY | 2025-01-26 18:53 | XMS_ITS | Encounter Summary ---
Author Organization [facility], Address [address] [place] [address] Phone Care Team Providers Care Leather Coverer Name Role Phone Unavailable Primary Care Provider Unavailabl e Encounter Details Date Type Department Care Team (Late st Contact Info) Description 05/26/2024 Documentation Only [facility], [address] [place] [address] Peace Diaz Social History Tobacco [...]
--- OUTSIDE RECORDS SUMMARY | 2025-01-26 18:53 | XMS_ITS | Encounter Summary ---
Author Organization [facility], Address [address] [place] [address] Phone Care Team Providers Care Bomb Technician Name Role Phone Unavailable Primary Care Provider Unavailabl e Encounter Details Date Type Department Care Team (Late st Contact Info) Description 07/15/2024 Documentation Only [facility], [address] [place] [address] Britt[address] Wyatt [address] [place] [phone] Social History Tobacco Use Types Packs/Day [...]
--- OUTSIDE RECORDS SUMMARY | 2025-01-26 18:53 | XMS_ITS | Encounter Summary ---
Author Organization [facility], Address [address] [place] [address] Phone Care Team Providers Care Marking Stitcher Name Role Phone Unavailable Primary Care Provider Unavailabl e Encounter Details Date Type Department Care Team (Late st Contact Info) Description 01/24/2025 Treatment [facility], [address] [place] [address] Chiquis Long FNP-C [address] [place] [address] End stage renal disease; Dependence [...] Dialysis Note - Chiquis Long FNP-C - 01/24/2025 12:00 AM EST Patient: Cony Goldman, 1945, 79y, F Dialysis Location: [facility] Attending Film Spooler: Caleb Gold Service Date: 01/24/2025 Service Provider: Chiquis Long NP I met face to face with the patient today. OVERVIEW The patient presented with ESRD on dialysis Primary cause of renal failure: Chronic kidney disease, stage 5 LAST HOSPITALIZATION Discharge Diagnosis: J45.901 Unspecified asthma with (acute) exacerbation I48.91 Unspecified atrial fibrillation E87.5 Hyperkalemia Admission Date 05/10/24 Discharge Date 05/13/24 DIALYSIS PRESCRIPTION IHD 3x Week Start date: 01/21/25 Dialyzer: FX CorAL 60 BFR: 450 DFR: Manual 500 Potassium: 2.0 Sodium: 137 EDW: 57.5 Duration: 3:15 Calcium: 2.50 Bicarb: 35 Rx updated on: 01/21/2025 TREATMENT ASSESSMENT BP Stand Pre 01/24/2025: 176/97 01/21/2025: 154/82 01/19/2025: 159/95 BP Sit Pre 01/24/2025: 165/85 01/21/2025: 169/84 01/19/2025: 161/83 BP Stand Post 01/24/2025: 134/70 01/21/2025: 165/88 01/19/2025: 141/78 BP Sit Post 01/24/2025: 136/80 01/21/2025: 158/90 01/19/2025: 167/92 Prescribed Tx time 01/24/2025: 3:15 01/21/2025: 3:15 01/19/2025: 3:15 Tx Duration 01/24/2025: 3:15 01/21/2025: 3:17 01/19/2025: 3:17 Missed Treatments 0 - last 30 days 0 - last 60 days FLUID ASSESSMENT EDW (kg) 01/24/2025: 57.5 01/21/2025: 58.0 01/19/2025: 58.0 Weight Pre (kg) 01/24/2025: 59.0 01/21/2025: 58.9 01/19/2025: 58.7 Weight Post (kg) 01/24/2025: 57.5 01/21/2025: 57.1 01/19/2025: 57.5 PWV (kg) 01/24/2025: 0.0 01/21/2025: -0.9 01/19/2025: -0.5 UF Rate (mL/kg/hr) 01/24/2025: 8 01/21/2025: 9.6 01/19/2025: 6.4 ADEQUACY ASSESSMENT spKt/V, URR 12/22/2024: 1.8, 79.0 11/24/2024: 1.66, 78.0 10/29/2024: 1.95, 81.0 ACCESS ASSESSMENT Access Type: AVFistula Access SubType: Standard Access Status: Active (In Use) - 03/31/2024 Access Location: Left Upper Arm Created: --/--/---- Flow 01/21/2025: 651 01/07/2025: 672 12/24/2024: 665 ANEMIA ASSESSMENT HGB, TSAT 01/19/2025: 9.8, - 01/12/2025: 10.0, - 01/05/2025: 10.1, 67.0 Ferritin 01/05/2025: 1221.0 12/08/2024: 1029.0 11/10/2024: 1209.0 Mircera, IVP (mcg) 01/17/2025: 30 01/03/2025: 30 11/15/2024: 50 BMM ASSESSMENT PTH, Intact 01/05/2025: 215.0 12/08/2024: 79.0 11/10/2024: 167.0 Calcium, Phosphorus 01/05/2025: 8.5, 5.3 12/08/2024: 9.4, 6.1 11/10/2024: 9.0, 6.7 Vitamin D (Calcitriol) Oral (mcg) 01/24/2025: 0.75 01/21/2025: 0.75 01/19/2025: 0.75 NUTRITION ASSESSMENT Potassium, Albumin 01/05/2025: 5.1, 3.8 12/08/2024: 4.8, 3.8 11/10/2024: 5.1, 3.9 eNPCR 12/22/2024: 1.01 11/24/2024: 0.95 10/29/2024: 1.15 DIAGNOSIS Chief Complaint: N18.6 End stage renal disease Comments: Patient seen and examined. VSS with no complaints to offer. S1, S2, RRR. LS CTA bilaterally. Access patent Patient is stable. Patient data updated 01/25/2025 at 8:25 AM Signed By: Chiquis Long NP on 01/25/2025 8:25:33 AM documented in this encounter Plan of Treatment Not on file documented as of this encounter Visit Diagnoses Diagnosis End stage renal disease Dependence on renal dialysis documented in this encounter
[2025-01-26 20:42] VITALS: BP 198/90; PULSE 63; RESP 14; TEMP 36.3; O2SAT 98
[2025-01-26] MEDS: Albuterol Sulfate (0.083%) 2.5 MG/3 ML VIAL.NEB INHALE (21:46)
[2025-01-26 21:48] VITALS: PULSE 65; RESP 18; O2SAT 98
--- NOTE | 2025-01-26 22:38 | PC.NURSE ---
Pt difficult stick, meds delayed. Pt will need ultrasound IV.
--- NOTE | 2025-01-26 23:05 | PM.IMHP ---
History of Present Illness Date of Service: 01/26/25 Attending physician on admission: Sudarshan Nieto Chief Complaint: HTN, chest pain Patient is a 79-year-old Egyptian-speaking female with a past medical history significant for ESRD on HD TTS, HTN, HLD, osteoporosis, mild intermittent asthma, chronic thrombocytopenia secondary to ESRD, who presented to the ED due to hypertension and chest pain. The patient was at dialysis and was becoming hypertensive so they discontinued. After the discontinue the patient's started to experience mild nonradiating chest pain/pressure. He was advised to go to the emergency department. The pt is now asx, has no complaints, denies chest pain, SOB, change in vision or headache. Upon arrival blood pressure was in the 200s and chest pain improved. The patient was hyperkalemic with a potassium of 5.3, she received calcium gluconate, insulin, dextrose and albuterol. EKG showed possibly peaked T-waves in V4 to V5, nonischemic. Troponin negative. Patient to be admitted due to hypertension and hyperkalemia with associated chest pain. Review of Systems Constitutional: Constitutional: Denies body ache(s), Denies chills, Denies fatigue, Denies fever(s) and Denies headache(s) Eyes: Eyes: Denies change in vision ENT: Denies headache(s), Denies nasal discharge, Denies nasal obstruction and Denies sore throat Cardiovascular: Cardiovascular: Reports as per HPI Respiratory: Respiratory: Denies chest congestion, Denies cough and Denies wheezing Gastrointestinal: Gastrointestinal: Denies abdominal pain, Denies diarrhea, Denies nausea and Denies vomiting Genitourinary: Genitourinary: Denies difficulty voiding, Denies dysuria and Denies urinary urgency Musculoskeletal: Musculoskeletal: Denies myalgias Integumentary/Breasts: Skin/Breast: Denies rash Neurologic: Denies confusion and Denies headache(s) Psychiatric: Psychiatric: Denies confusion Endocrine: Endocrine: Denies fatigue Hematologic/Lymphatic: Hematologic/Lymphatic: Denies easy bleeding Allergic/Immunologic: Allergic/Immunologic: Denies wheezing [facility] Medical History Osteoporosis HLD (hyperlipidemia) ESRD (end stage renal disease) on dialysis Kidney disease High blood pressure Asthma Functional capacity: independent ambulation Family History (Updated 09/12/24 @ 08:24 by Gabbi Engel MA) Mother Asthma Hypertension Social History (Updated 09/12/24 @ 08:25 by Gabbi Engel MA) Housing: Apartment Alcohol intake: never Patient Tobacco Use Status: Never used Tobacco Smoked in Last 30 Days: No e-Cigarette/Vaping Use: Never Used Second Hand Smoke Exposure: No Use of substances other than those prescribed or required for medical reasons: No Advance Directives: No Advance Directives Information Provided: No Do you have a plan to hurt others: No Plan service: No Current occupational status: retired and other Current occupational exposures/hazards: No Cognitive needs: No Hearing needs: No Vision needs: No Meds Allergies Allergy/AdvReac Type Severity Reaction Status Date / Time No Known Allergies Allergy Verified 01/26/25 17:30 Home Medications ?Medication ?Instructions ?Recorded ?Confirmed ?Last Taken ?Type carvedilol 6.25 mg tablet 6.25 mg PO ONCE 09/12/24 01/23/25 Unknown History sevelamer carbonate 800 mg tablet 800 mg PO TID 09/12/24 01/23/25 Unknown History Physical Exam Vital Signs and Narrative: Vital Signs: Last Vital Signs Temp 97.4 F 01/26/25 20:42 Pulse 65 01/26/25 21:48 Resp 18 01/26/25 21:48 BP 198/90 H 01/26/25 20:42 Pulse Ox 98 01/26/25 20:42 O2 Del Method Room Air 01/26/25 20:42 BMI result Body Mass Index 25.2 General: AOx3, no acute distress Resp: CTA bilaterally CVS: S1, S2, RRR GI: +BS, NT, no distention Skin: Warm, dry Neuro: Cranial nerves II-XII grossly intact bilaterally. Motor grossly intact bilaterally Extremities: No edema Psych: Appropriate affect Const: General: No confusion Orientation/consciousness: No confusion Neuro: General: No confusion Results Labs 01/26/25 18:01 01/26/25 18:01 Labs: Laboratory Results - last 24 hr 01/26/25 18:01 MCV 74.7 L MCH 23.1 L MCHC 31.0 RDW 16.2 H Plt Count 107 L MPV TNP Immature Gran % (Auto) 0.3 Neut % (Auto) 36.0 L Lymph % (Auto) 44.1 H [place] % (Auto) 12.1 H Eos % (Auto) 6.0 H Baso % (Auto) 1.5 Lymph # (Auto) 1.8 [place] # (Auto) 0.5 Eos # (Auto) 0.2 Baso # (Auto) 0.1 Abs Immat Gran (auto) 0.01 Absolute Neuts (auto) 1.4 L Absolute Nucleated RBC 0.000 Nucleated RBC % (auto) 0.0 Smear Tech's Comments VERIFIED Anion Gap 17 Estim Creat Clear Calc 5.5 Estimated GFR 6 Random Glucose 77 Calcium 9.0 Magnesium 2.6 Total Bilirubin 0.5 AST 20 ALT 9 Alkaline Phosphatase 72 Troponin I High Sens 11.8 NT-Pro-B Natriuret Pep 36985.4 H Total Protein 7.7 Albumin 4.2 Assessment and Plan (1) Hypertensive urgency: Status: Acute (2) Chest pain: Qualifiers: Chest pain type: unspecified Qualified Code(s): R07.9 - Chest pain, unspecified Status: Acute (3) Hyperkalemia: Status: Acute Plan Patient is a 79-year-old Egyptian-speaking female with a past medical history significant for ESRD on HD TTS, HTN, HLD, osteoporosis, mild intermittent asthma, chronic thrombocytopenia secondary to ESRD, who presented to the ED due to hypertension and chest pain. 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 Quality Stroke Does the patient have a stroke diagnosis?: No VTE Prior VTE?: No VTE Risk Level:: Medical - moderate - high VTE Device Contraindication: Treatment Not Indicated VTE Drug Contraindication: N/A - Med Ordered
[2025-01-26 23:50] VITALS: BP 188/85; PULSE 61; RESP 14; O2SAT 97
[2025-01-26] MEDS: Calcium Gluconate/NaCl,Iso-Osm 1 GM/50 ML PLAST..BAG IV (23:59)
[2025-01-27] VITALS (8 sets, daily range): BP systolic 130–180; BP diastolic 62–84; PULSE 50–82; RESP 16–18; TEMP 36.3–37.1; O2SAT 93–98; BMI 25.5
[2025-01-27] MEDS: 0.9 % Sodium Chloride Flush 3 ML SYRINGE IVFLUSH ×3 (00:01→15:16)
[2025-01-27 00:11] LABS: Anion Gap 20 (12-20); Blood Urea Nitrogen 69 mg/dL (9-16); Calcium 8.7 mg/dL (8.4-10.2); Carbon Dioxide 23 mmol/L (22-29); Chloride 100 mmol/L (96-108); Creatinine Clr Calc Pharmacy 5.4; Estimated Glomerular Filt Rate 6; Potassium 4.8 mmol/L (3.3-5.1); Sodium 138 mmol/L (135-145)
--- NOTE | 2025-01-27 02:40 | HO.NURTONUR ---
Addendum entered by Jana Delatorre RN 01/27/25 02:41: Pt is primarily [place] African speaking. Original Note: Pt A&Ox3 from home, ambulatory, came in for high BP and chest pain while at dialysis, Pt did not receive full dialysis. Here in ED Pt was hypertensive, labs showed hyperkalemia. Pt received calcium gluconate, insulin, dextrose and albuterol. EKG showed possibly peaked T-waves. Patient to be admitted due to hypertension and hyperkalemia with associated chest pain, plan for hydralazine 5mg PRN SBP >160, monitor BMP and pt will likely need dialysis tomorrow as she could not complete due to HTN. Pt reports she makes urine 1 time daily. Fistula to left upper arm, +thrill/bruit. Ultrasound guided 20G IV to R lower FA.
[2025-01-27 07:11] LABS: Hematocrit 33.0 % (37.0-47.0); Hemoglobin 10.5 g/dl (12.0-16.0); Mean Corpuscular HGB Conc 31.8 g/dl (31.0-35.0); Mean Corpuscular Hemoglobin 23.4 pg (27.0-33.0); Mean Corpuscular Volume 73.7 fL (80.0-98.0); NRBC Abs Auto 0.000 X10*3/uL (0.0-0.012); NRBC Pct Auto 0.0 /100WBC (0.0-0.2); Platelet Count 102 X10*3/uL (160-400); Red Blood Count 4.48 X10*6/uL (4.20-5.50); White Blood Count 3.9 X10*3/uL (4.8-10.8)
[2025-01-27 07:22] LABS: Anion Gap 18 (12-20); Blood Urea Nitrogen 72 mg/dL (9-16); Calcium 9.1 mg/dL (8.4-10.2); Carbon Dioxide 25 mmol/L (22-29); Chloride 100 mmol/L (96-108); Creatinine Clr Calc Pharmacy 4.8; Estimated Glomerular Filt Rate 5; Magnesium 2.6 mg/dL (1.6-2.6); Potassium 5.6 mmol/L (3.3-5.1); Sodium 137 mmol/L (135-145)
[2025-01-27] MEDS: Flu Vacc TS2025-26(6mo up)/PF 0.5 ML SYRINGE IM (09:35)
--- NOTE | 2025-01-27 09:41 | MHC.CM.PN ---
CM met with Patient at bedside with the assist of a Tax Professional and addressed IMM with her, providing Patient with the original and a copy has been placed on the chart. Patient lives in an apartment with her Daughter/HCP/Jacqueline, who will transport at time of dc. Patient attends HD Q T//SAT @ [facility] in [place] and she is functionally independent. Home/resume said services is the goal and CM has initiated and will follow for dc planning. PCP is Dr. Kylie Babb.
--- NOTE | 2025-01-27 12:51 | PM.CNNEP ---
History of Present Illness Reason for Consult Consult date: 01/27/25 Reason for consult: End stage renal disease Chief Complaint Chief complaint: cheat pain, hyperkalemia, dialysis pt History of Present Illness Narrative: 79-year-old Frisian-speaking female with a past medical history significant for ESRD on HD TTS, HTN, HLD, osteoporosis, mild intermittent asthma, chronic thrombocytopenia secondary to ESRD, who presented to the ED due to hypertension and chest pain. The patient was at dialysis and was becoming hypertensive so they discontinued. After the discontinue the patient's started to experience mild nonradiating chest pain/pressure. He was advised to go to the emergency department. The pt is now asx, has no complaints, denies chest pain, SOB, change in vision or headache. Usually goes to dialysis at [facility] dialysis Review of Systems Constitutional: Denies fever(s) and Denies weight loss Cardiovascular: Denies chest pain Respiratory: Denies cough and Denies hemoptysis Gastrointestinal: Denies abdominal pain, Denies diarrhea and Denies nausea Musculoskeletal: Denies back pain Denies focal weakness [facility] Past Medical History Medical History Osteoporosis HLD (hyperlipidemia) ESRD (end stage renal disease) on dialysis Kidney disease High blood pressure Asthma Family History Family History Mother Asthma Hypertension Social History Social History Household Members: Family Housing: House Do you presently have visiting nurse or other home services: No Alcohol intake: never Patient Tobacco Use Status: Never used Tobacco Smoked in Last 30 Days: No e-Cigarette/Vaping Use: Never Used Second Hand Smoke Exposure: No Use of substances other than those prescribed or required for medical reasons: No Currently Displaying Signs/Symptoms of Drug Intoxication Withdrawal: No Have you been hit, kicked, punched, or otherwise hurt by someone within the past year? If so, by whom?: No Are you made to feel afraid or neglected: No Advance Directives: No Advance Directives Information Provided: No Do you have a plan to hurt others: No Plan Recently lost weight without trying: No How much weight loss: Not applicable Eating poorly because of decreased appetite: No Nutrition screen score: 0 Nutrition Risks: No Nutritional Risk Patient : No : No Poor oral hygiene: No service: No Current occupational status: retired and other Current occupational exposures/hazards: No Cognitive needs: No Hearing needs: No Vision needs: No Meds Allergies Allergy/AdvReac Type Severity Reaction Status Date / Time No Known Allergies Allergy Verified 01/26/25 17:30 Active Medications: Current Medications Acetaminophen (Acetaminophen 325 Mg Tablet) 650 mg PO Q6H PRN PRN Reason: Pain, Mild 1-3,fever,headache Last Admin: 01/27/25 09:42 Dose: 650 mg Calcium Carbonate (Calcium Carbonate 750 Mg Tab.Chew) 750 mg PO Q4H PRN PRN Reason: Heartburn Heparin Sodium (Porcine) (Heparin Sodium,Porcine 5,000 Unit/Ml Vial) 5,000 unit SUBCUT Q12H [facility] Last Admin: 01/27/25 00:03 Dose: 5,000 unit Hydralazine HCl (Hydralazine Hcl 20 Mg/Ml Vial) 5 mg IVPUSH Q6H PRN; Protocol PRN Reason: SBP > 160 Magnesium Hydroxide (Milk Of Magnesia 30 Ml Oral.Susp) 30 ml PO DAILY PRN PRN Reason: Constipation Melatonin (Melatonin 3 Mg Tablet) 6 mg PO BEDTIME PRN PRN Reason: Insomnia Ondansetron HCl (Ondansetron Hcl 4 Mg/2 Ml Vial) 4 mg IVPUSH Q8H PRN PRN Reason: Nausea and Vomiting Sodium Chloride (0.9 % Sodium Chloride Flush 3 Ml Syringe) [address] [facility] Last Admin: 01/27/25 09:35 Dose: 3 ml Home Medications ?Medication ?Instructions ?Recorded ?Confirmed ?Last Taken ?Type carvedilol 6.25 mg tablet 6.25 mg PO DAILY 09/12/24 01/27/25 Unknown History sevelamer carbonate 800 mg tablet 1,600 mg PO TIDWM 09/12/24 01/27/25 Unknown History Physical Exam Vital Signs: Last Vital Signs Temp 97.7 F 01/27/25 11:45 Pulse 64 01/27/25 11:45 Resp 18 01/27/25 11:45 BP 180/83 H 01/27/25 11:45 Pulse Ox 93 01/27/25 11:45 O2 Del Method Room Air 01/27/25 11:45 BMI result Body Mass Index 25.5 Comfortable Neck supple no JVD. Lungs entry equal no rales. Heart S1-S2 heard no gallop or rub. Abdomen soft nontender. Neuro alert awake oriented. No asterixis. Extremities no edema. Results Lab Results 01/27/25 06:50 01/27/25 06:50 Lab results: Chemistry 01/26/25 01/26/25 01/27/25 18:01 23:45 06:50 Sodium 138 138 137 Potassium 5.3 H 4.8 5.6 H Carbon Dioxide BUN 63 H 69 H 72 H Creatinine 6.78 H* 7.02 H* 7.77 H* Calcium 9.0 8.7 9.1 Hematology 01/26/25 01/27/25 18:01 06:50 WBC 4.0 L 3.9 L Hgb 10.4 L 10.5 L Plt Count 107 L 102 L Assessment and Plan (1) End stage renal disease: Status: Acute Plan On hemodialysis Thursday. No signs or symptoms of uremia. Fluid status acceptable. Had mild hyperkalemia. Agree with Lokelma p.r.n. Keep on low-potassium diet. We will arrange for hemodialysis on Thursday as per schedule. Concur with other medical management. Procedures Date of Service Date of Service: 01/27/25
--- NOTE | 2025-01-27 15:04 | PM.CNCAR ---
History of Present Illness History of Present Illness Date of Service: 01/27/25 Requesting physician: Dalia Chauhan Chief complaint: chest pain, hyperkalemia, dialysis pt Narrative: [age] year lady with hypertension, hyperlipidemia, end-stage renal disease on hemodialysis and history of severe aortic valve stenosis status post transcatheter aortic valve replacement with a 23 mm Evolut valve by Dr. Rock at [facility]. She is presenting with chest tightness and was noticed to be significantly hypertensive. Her chest discomfort has improved with blood pressure improvement. She is denying any chest discomfort currently. Blood pressure continues to be high. She has not missed dialysis. She is compliant with her diet and hemodialysis. [facility] Past Medical History Medical History Osteoporosis HLD (hyperlipidemia) ESRD (end stage renal disease) on dialysis Kidney disease High blood pressure Asthma Family History Family History Mother Asthma Hypertension Social History Social History Household Members: Family Housing: House Do you presently have visiting nurse or other home services: No Alcohol intake: never Patient Tobacco Use Status: Never used Tobacco Smoked in Last 30 Days: No e-Cigarette/Vaping Use: Never Used Second Hand Smoke Exposure: No Use of substances other than those prescribed or required for medical reasons: No Currently Displaying Signs/Symptoms of Drug Intoxication Withdrawal: No Have you been hit, kicked, punched, or otherwise hurt by someone within the past year? If so, by whom?: No Are you made to feel afraid or neglected: No Advance Directives: No Advance Directives Information Provided: No Do you have a plan to hurt others: No Plan Recently lost weight without trying: No How much weight loss: Not applicable Eating poorly because of decreased appetite: No Nutrition screen score: 0 Nutrition Risks: No Nutritional Risk Patient : No : No Poor oral hygiene: No service: No Current occupational status: retired and other Current occupational exposures/hazards: No Cognitive needs: No Hearing needs: No Vision needs: No Meds Allergies Allergy/AdvReac Type Severity Reaction Status Date / Time No Known Allergies Allergy Verified 01/26/25 17:30 Active Medications: Current Medications Acetaminophen (Acetaminophen 325 Mg Tablet) 650 mg PO Q6H PRN PRN Reason: Pain, Mild 1-3,fever,headache Last Admin: 01/27/25 09:42 Dose: 650 mg Calcium Carbonate (Calcium Carbonate 750 Mg Tab.Chew) 750 mg PO Q4H PRN PRN Reason: Heartburn Heparin Sodium (Porcine) (Heparin Sodium,Porcine 5,000 Unit/Ml Vial) 5,000 unit SUBCUT Q12H [facility] Last Admin: 01/27/25 12:52 Dose: 5,000 unit Hydralazine HCl (Hydralazine Hcl 20 Mg/Ml Vial) 5 mg IVPUSH Q6H PRN; Protocol PRN Reason: SBP > 160 Last Admin: 01/27/25 12:52 Dose: 5 mg Magnesium Hydroxide (Milk Of Magnesia 30 Ml Oral.Susp) 30 ml PO DAILY PRN PRN Reason: Constipation Melatonin (Melatonin 3 Mg Tablet) 6 mg PO BEDTIME PRN PRN Reason: Insomnia Ondansetron HCl (Ondansetron Hcl 4 Mg/2 Ml Vial) 4 mg IVPUSH Q8H PRN PRN Reason: Nausea and Vomiting Sodium Chloride (0.9 % Sodium Chloride Flush 3 Ml Syringe) 3 ml IVFLUSH QSHIFT [facility] Last Admin: 01/27/25 09:35 Dose: 3 ml Home Medications ?Medication ?Instructions ?Recorded ?Confirmed ?Last Taken ?Type carvedilol 6.25 mg tablet 6.25 mg PO DAILY 09/12/24 01/27/25 Unknown History sevelamer carbonate 800 mg tablet 1,600 mg PO TIDWM 09/12/24 01/27/25 Unknown History Physical Exam Vital Signs: Vital Signs: Last Vital Signs Temp 97.7 F 01/27/25 11:45 Pulse 64 01/27/25 11:45 Resp 18 01/27/25 11:45 BP 160/84 H 01/27/25 13:58 Pulse Ox 93 01/27/25 11:45 O2 Del Method Room Air 01/27/25 11:45 BMI result Body Mass Index 25.5 GENERAL APPEARANCE: in no acute distress, pleasant. NECK: no carotid bruit, no jugular venous distention. SKIN: no suspicious lesions, warm and dry. HEART: Soft systolic murmur aortic area, regular rate and rhythm. LUNGS: clear to auscultation bilaterally. ABDOMEN: soft, nontender. EXTREMITIES: no edema. PERIPHERAL PULSES: equal. NEUROLOGIC: No gross deficits, AAO X 3 Objective Labs and Meds 01/27/25 06:50 01/27/25 06:50 Lab results: Laboratory Results - last 24 hr 01/26/25 01/26/25 01/27/25 18:01 23:45 06:50 WBC 4.0 L 3.9 L RBC 4.50 4.48 Hgb 10.4 L 10.5 L Hct 33.6 L 33.0 L MCV 74.7 L 73.7 L MCH 23.1 L 23.4 L MCHC 31.0 31.8 RDW 16.2 H 16.1 H Plt Count 107 L 102 L MPV TNP Not Reportable Immature Gran % (Auto) 0.3 Neut % (Auto) 36.0 L Lymph % (Auto) 44.1 H [place] % (Auto) 12.1 H Eos % (Auto) 6.0 H Baso % (Auto) 1.5 Lymph # (Auto) 1.8 [place] # (Auto) 0.5 Eos # (Auto) 0.2 Baso # (Auto) 0.1 Abs Immat Gran (auto) 0.01 Absolute Neuts (auto) 1.4 L Absolute Nucleated RBC 0.000 0.000 Nucleated RBC % (auto) 0.0 0.0 Smear Tech's Comments VERIFIED Sodium 138 138 137 Potassium 5.3 H 4.8 5.6 H Chloride 101 100 100 Carbon Dioxide 25 23 25 Anion Gap 17 20 18 BUN 63 H 69 H 72 H Creatinine 6.78 H* 7.02 H* 7.77 H* Estim Creat Clear Calc 5.5 5.4 4.8 Estimated GFR 6 6 5 Random Glucose 77 128 H 75 Calcium 9.0 8.7 9.1 Magnesium 2.6 2.6 Total Bilirubin 0.5 AST 20 ALT 9 Alkaline Phosphatase 72 Troponin I High Sens 11.8 NT-Pro-B Natriuret Pep 04643.4 H Total Protein 7.7 Albumin 4.2 Assessment and Plan (1) Hypertensive urgency: Status: Acute (2) Chest pain: Qualifiers: Chest pain type: unspecified Qualified Code(s): R07.9 - Chest pain, unspecified Status: Acute Plan 79 year lady with end-stage renal disease on hemodialysis, hypertension and previous history of transcatheter aortic valve replacement presenting with chest discomfort in the setting of significantly elevated blood pressure. Blood pressure is somewhat better at this point and her chest discomfort has resolved completely. Likely cause for chest discomfort a significant elevation of blood pressure. She is currently not getting her own medications. Please resume amlodipine and carvedilol. She is on apixaban 2.5 mg twice a day-unclear whether she had atrial fibrillation before or not. She will follow up with Dr. Rock after discharge. Thank you for allowing me to participate in the care of your patient. Please feel free to contact me if you have any questions. Procedures Date of Service Date of Service: 01/27/25
--- NOTE | 2025-01-27 15:16 | PHA.MEDREC ---
Pharmacy Consult ? Medication Reconciliation Pharmacy has completed the medication reconciliation.
[2025-01-27] MEDS: Sevelamer Carbonate Tablet 800 MG TABLET 1600 MG PO (17:10)
--- NOTE | 2025-01-27 17:33 | HO.PM.IMPN ---
Subjective Subjective Date of Service: 01/27/25 Interval History: Seen and examined during morning rounds Pt resting comfortably in bed Chest pain currently resolved Denies shortness or breath or difficulty breathing No headache BP this morning 130/62 Review of Systems Review of Systems: Yes all other systems are reviewed and are negative Physical Exam Exam: Exam: General: AOx3, no acute distress Resp: CTA bilaterally CVS: S1, S2, RRR, +murmur GI: +BS, NT, no distention Skin: Warm, dry Neuro: Cranial nerves II-XII grossly intact bilaterally. Motor grossly intact bilaterally Extremities: No edema Psych: Appropriate affect Vital Signs: Vital Signs: Last Vital Signs Temp 98.4 F 01/27/25 16:00 Pulse 77 01/27/25 16:00 Resp 18 01/27/25 16:00 BP 160/78 H 01/27/25 16:00 Pulse Ox 98 01/27/25 16:00 O2 Del Method Room Air 01/27/25 16:00 BMI result Body Mass Index 25.5 Objective Data Active Medications Acetaminophen (Acetaminophen 325 Mg Tablet) 650 mg PO Q6H PRN PRN Reason: Pain, Mild 1-3,fever,headache Last Admin: 01/27/25 09:42 Dose: 650 mg Documented By: RAFAELA Amlodipine Besylate (Amlodipine Besylate 10 Mg Tablet) 10 mg PO DAILY [facility]; Protocol Last Admin: 01/27/25 15:16 Dose: 10 mg Documented By: RAFAELA Apixaban (Apixaban 2.5 Mg Tablet) 2.5 mg PO BID [facility] Calcium Carbonate (Calcium Carbonate 750 Mg Tab.Chew) 750 mg PO Q4H PRN PRN Reason: Heartburn Carvedilol (Carvedilol 6.25 Mg Tablet) 6.25 mg PO DAILY [facility]; Protocol Last Admin: 01/27/25 15:15 Dose: 6.25 mg Documented By: RFAAELA Hydralazine HCl (Hydralazine Hcl 20 Mg/Ml Vial) 5 mg IVPUSH Q6H PRN; Protocol PRN Reason: SBP > 160 Last Admin: 01/27/25 12:52 Dose: 5 mg Documented By: RAFAELA Magnesium Hydroxide (Milk Of Magnesia 30 Ml Oral.Susp) 30 ml PO DAILY PRN PRN Reason: Constipation Melatonin (Melatonin 3 Mg Tablet) 6 mg PO BEDTIME PRN PRN Reason: Insomnia Ondansetron HCl (Ondansetron Hcl 4 Mg/2 Ml Vial) 4 mg IVPUSH Q8H PRN PRN Reason: Nausea and Vomiting Sevelamer Carbonate (Sevelamer Carbonate Tablet 800 Mg Tablet) 1,600 mg PO TIDWM [facility] Last Admin: 01/27/25 17:10 Dose: 1,600 mg Documented By: RAFAELA Sodium Chloride (0.9 % Sodium Chloride Flush 3 Ml Syringe) 3 ml IVFLUSH QSHIFT [facility] Last Admin: 01/27/25 15:16 Dose: 3 ml Documented By: RAFAELA Labs 01/27/25 06:50 01/27/25 06:50 Labs: Laboratory Results - last 24 hr 01/26/25 01/26/25 01/27/25 18:01 23:45 06:50 MCV 74.7 L 73.7 L MCH 23.1 L 23.4 L MCHC 31.0 31.8 RDW 16.2 H 16.1 H Plt Count 107 L 102 L MPV TNP Not Reportable Immature Gran % (Auto) 0.3 Neut % (Auto) 36.0 L Lymph % (Auto) 44.1 H [place] % (Auto) 12.1 H Eos % (Auto) 6.0 H Baso % (Auto) 1.5 Lymph # (Auto) 1.8 [place] # (Auto) 0.5 Eos # (Auto) 0.2 Baso # (Auto) 0.1 Abs Immat Gran (auto) 0.01 Absolute Neuts (auto) 1.4 L Absolute Nucleated RBC 0.000 0.000 Nucleated RBC % (auto) 0.0 0.0 Smear Tech's Comments VERIFIED Anion Gap 17 20 18 Estim Creat Clear Calc 5.5 5.4 4.8 Estimated GFR 6 6 5 Random Glucose 77 128 H 75 Calcium 9.0 8.7 9.1 Magnesium 2.6 2.6 Total Bilirubin 0.5 AST 20 ALT 9 Alkaline Phosphatase 72 Troponin I High Sens 11.8 NT-Pro-B Natriuret Pep 98243.4 H Total Protein 7.7 Albumin 4.2 Assessment and Plan (1) Hypertensive urgency: Status: Acute Plan Patient is a 79-year-old Azerbaijani-speaking female with a past medical history significant for ESRD on HD TTS, HTN, HLD, osteoporosis, mild intermittent asthma, chronic thrombocytopenia secondary to ESRD, who presented to the ED due to hypertension and chest pain. 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 pt will require close monitoring of BP and administration of p.r.n. IV medications as necessary. Quality Stroke Does the patient have a stroke diagnosis?: No VTE Prior VTE?: No VTE Risk Level:: Medical - moderate - high VTE Device Contraindication: Treatment Not Indicated VTE Drug Contraindication: N/A - Med Ordered
[2025-01-28] MEDS: 0.9 % Sodium Chloride Flush 3 ML SYRINGE IVFLUSH ×2 (00:38→12:54)
[2025-01-28 02:41] VITALS: BP 139/66; PULSE 73; RESP 18; TEMP 36.4; O2SAT 97
[2025-01-28 07:31] LABS: Hematocrit 28.9 % (37.0-47.0); Hemoglobin 9.5 g/dl (12.0-16.0); Mean Corpuscular HGB Conc 32.9 g/dl (31.0-35.0); Mean Corpuscular Hemoglobin 23.3 pg (27.0-33.0); Mean Corpuscular Volume 70.8 fL (80.0-98.0); NRBC Abs Auto 0.000 X10*3/uL (0.0-0.012); NRBC Pct Auto 0.0 /100WBC (0.0-0.2); Platelet Count 110 X10*3/uL (160-400); Red Blood Count 4.08 X10*6/uL (4.20-5.50); White Blood Count 4.4 X10*3/uL (4.8-10.8)
[2025-01-28 07:41] VITALS: BP 190/86; PULSE 64; RESP 20; TEMP 36.8; O2SAT 98
[2025-01-28 08:11] LABS: Anion Gap 19 (12-20); Blood Urea Nitrogen 89 mg/dL (9-16); Calcium 8.7 mg/dL (8.4-10.2); Carbon Dioxide 22 mmol/L (22-29); Chloride 101 mmol/L (96-108); Creatinine Clr Calc Pharmacy 3.9; Estimated Glomerular Filt Rate 4; Magnesium 2.7 mg/dL (1.6-2.6); Potassium 5.2 mmol/L (3.3-5.1); Sodium 137 mmol/L (135-145)
[2025-01-28 12:00] VITALS: BP 162/84; PULSE 75; RESP 20; TEMP 36.5; O2SAT 98
[2025-01-28] MEDS: Sevelamer Carbonate Tablet 800 MG TABLET 1600 MG PO (12:53)
[2025-01-28 14:13] VITALS: BP 122/72; PULSE 76
--- NOTE | 2025-01-28 14:53 | P.DS_ITS ---
DS: Providers Provider Date of Service: 01/28/25 Date of admission: 01/26/25 22:57 Date of discharge: 01/28/25 Primary care physician: Unknown Physician Consults: 01/26/25 23:02 Consult to Cardiology Routine Consulting Provider: [facility] Reason for consultation: chest pain 01/26/25 23:19 Consult to Nephrology Routine Consulting Provider: [facility] Reason for consultation: ESRD on HD TTS Has provider been notified: No DS: Diagnosis Discharge Diagnosis (1) Hypertensive urgency: Status: Acute DS: Summary Hospital Course Hospital Course: From admission HPI: Date of Service: 01/26/25 Attending physician on admission: Sudarshan Nieto Chief Complaint: HTN, chest pain Patient is a 79-year-old Lithuanian-speaking female with a past medical history significant for ESRD on HD TTS, HTN, HLD, osteoporosis, mild intermittent asthma, chronic thrombocytopenia secondary to ESRD, who presented to the ED due to hypertension and chest pain. The patient was at dialysis and was becoming hypertensive so they discontinued. After the discontinue the patient's started to experience mild nonradiating chest pain/pressure. He was advised to go to the emergency department. The pt is now asx, has no complaints, denies chest pain, SOB, change in vision or headache. Upon arrival blood pressure was in the 200s and chest pain improved. The patient was hyperkalemic with a potassium of 5.3, she received calcium gluconate, insulin, dextrose and albuterol. EKG showed possibly peaked T-waves in V4 to V5, nonischemic. Troponin negative. Patient to be admitted due to hypertension and hyperkalemia with associated chest pain. Hospital course Pt was admitted to the hospital after experiencing significantly elevated blood pressure, headache, and chest pain that terminated dialysis session on 01/26. Pt initially required multiple doses of IV antihypertensives in order to achieve adequate blood pressure control, hospital course was complicated by hyperkalemia that was initially treated with Lokelma. Pt was seen and evaluated by Nephrology who scheduled hemodialysis for 01/28, which ultimately corrected patient's potassium and BP. Patient's home medications were resumed and her blood pressure at time of discharge was 122/72. Patient's symptoms had resolved and she now felt back to baseline. Pt will be discharged home to resume all of her home medications as well as her normal hemodialysis schedule. Time Attestation Discharge Coordination Time (in mins): 33 Quality: Safe Use of Opioids Does Pt have an Active Cancer Diagnosis on the Problem List?: No Quality: Stroke Does the patient have a stroke diagnosis?: No Physical Exam Exam: Exam: General: AOx3, no acute distress Resp: CTA bilaterally CVS: S1, S2, RRR, +murmur GI: +BS, NT, no distention Skin: Warm, dry Neuro: Cranial nerves II-XII grossly intact bilaterally. Motor grossly intact bilaterally Extremities: No edema Psych: Appropriate affect Vital Signs: Vital Signs: Last Vital Signs Temp 97.7 F 01/28/25 12:00 Pulse 76 01/28/25 14:13 Resp 20 01/28/25 12:00 BP 122/72 01/28/25 14:13 Pulse Ox 98 01/28/25 12:00 O2 Del Method Room Air 01/28/25 12:00 BMI result Body Mass Index 25.5 DS: Data Data Completed and Pending Labs on day of discharge: Laboratory Results - last 24 hr 01/28/25 07:07 WBC 4.4 L RBC 4.08 L Hgb 9.5 L Hct 28.9 L MCV 70.8 L MCH 23.3 L MCHC 32.9 RDW 16.1 H Plt Count 110 L MPV Not Reportable Absolute Nucleated RBC 0.000 Nucleated RBC % (auto) 0.0 Sodium 137 Potassium 5.2 H Chloride 101 Carbon Dioxide 22 Anion Gap 19 BUN 89 H Creatinine 9.60 H* Estim Creat Clear Calc 3.9 Estimated GFR 4 Random Glucose 84 Calcium 8.7 Magnesium 2.7 H Discharge Plan Discharge Anticipated Discharge Date/Time: 01/28/25 13:03 Patient Disposition: Home, Self-Care Discharge Diagnosis: Hypertensive urgency Referrals: Physician,Unknown J [Primary Care Provider, Medical] - 1 Week Discharge Medications: Continued alendronate 70 mg tablet 70 mg PO QWEEK Qty: 12 1RF Eliquis 2.5 mg tablet 2.5 mg PO BID 30 Days Qty: 60 3RF carvedilol 6.25 mg tablet 6.25 mg PO DAILY Rx Instructions: must administer with a meal/food sevelamer carbonate 800 mg tablet 1,600 mg PO TIDWM Rx Instructions: must administer with a meal/food amlodipine 10 mg tablet 10 mg PO DAILY 30 Days Qty: 30 3RF Discharge Orders: Discharge Order (Routine); Ordered 01/28/25 Ordered By: Dalia Chauhan Activity on Discharge: As tolerated Stand Alone Forms: Patient Portal Discharge page Print Language: Lithuanian Care Plan Goals: See below Health Concerns: Hypertensive urgency ESRD on HD Electrolyte abnormalities Hyperkalemia Plan of Treatment: You were admitted to the hospital after experiencing significantly elevated blood pressure, headache, and chest pain that prevented you from having a full dialysis session 01/26. You were initially needed treatment with IV antihypertensives in order to achieve adequate blood pressure control, you were also noted to have elevated potassium which was treated with medication. Ultimately blood pressure and electrolyte abnormalities were controlled with hemodialysis which you received per your normal schedule on Thursday, 01/28. Your home medications were resumed and your BP at time of discharge was 122/72. You no longer were experiencing any other symptoms and felt back to baseline. You should resume all of your home medications as well as your normal hemodialysis schedule. Assessment: See discharge summary
--- NOTE | 2025-01-28 15:14 | MHC.CM.PN ---
Pt. has been medically cleared to [place], she will go home via private transport, plan is self care.
== END 2025-01-28 15:45 | disposition home or self-care (01) | DRG 304 ==
LOC: HO.ED 22:21 → HO.EDOVER 22:59 → HO.IMC 01-27 02:09
PROVIDERS: Physician Assistant Medical; Admitting Provider Physician Assistant; Emergency Provider Emergency Medicine; Visit Provider Student in an Organized Health Care Education/Training Program
DX: I16.0 Hypertensive urgency (principal); N18.6 End stage renal disease; I12.0 Hypertensive chronic kidney disease with stage 5 chronic kidney disease or end stage renal disease; Z99.2 Dependence on renal dialysis; D63.1 Anemia in chronic kidney disease; J45.20 Mild intermittent asthma, uncomplicated; E87.5 Hyperkalemia; E78.5 Hyperlipidemia, unspecified; D69.59 Other secondary thrombocytopenia; Z23 Encounter for immunization; Z79.01 Long term (current) use of anticoagulants; Z79.899 Other long term (current) drug therapy
CPT/HCPCS: 36415; 71046; 80048; 80053; 83735; 83880; 84484; 85025; 85027; 90656; 93005; 94640; 99212; 99285; J0360; J0613; J0616; J1644

== ENCOUNTER → 2025-01-26 17:29 | Outpatient (BNV) | payer MEDICARE, MEDICAID, SELFPAY | PROVIDERS: Visit Provider Student in an Organized Health Care Education/Training Program | DX: R07.9 Chest pain, unspecified (principal) | CPT/HCPCS: 71046 ==

== ENCOUNTER → 2025-01-26 22:57 | Outpatient (BNV) | payer MEDICARE, MEDICAID, SELFPAY | PROVIDERS: Admitting Provider Physician Assistant; Emergency Provider Emergency Medicine; Visit Provider Student in an Organized Health Care Education/Training Program | DX: I16.0 Hypertensive urgency (principal); R07.9 Chest pain, unspecified; E87.5 Hyperkalemia | CPT/HCPCS: 99223; 99233 ==

== ENCOUNTER → 2025-01-26 22:57 | Outpatient (BNV) | payer MEDICARE, MEDICAID, SELFPAY | PROVIDERS: Admitting Provider Physician Assistant; Emergency Provider Emergency Medicine; Visit Provider Internal Medicine Cardiovascular Disease | DX: I16.0 Hypertensive urgency (principal); R07.9 Chest pain, unspecified | CPT/HCPCS: 99223 ==

== ENCOUNTER → 2025-01-26 22:57 | Outpatient (BNV) | payer MEDICARE, MEDICAID, SELFPAY | PROVIDERS: Admitting Provider Physician Assistant; Emergency Provider Emergency Medicine; Visit Provider Internal Medicine Hypertension Specialist | DX: N18.6 End stage renal disease (principal) | CPT/HCPCS: 99223 ==

== ENCOUNTER 2025-02-22 12:17 | Outpatient (REF) | payer MEDICARE, MEDICAID, SELFPAY ==
[2025-02-22 13:46] LABS: Hematocrit 33.7 % (37.0-47.0); Hemoglobin 10.8 g/dl (12.0-16.0); Mean Corpuscular HGB Conc 32.0 g/dl (31.0-35.0); Mean Corpuscular Hemoglobin 24.1 pg (27.0-33.0); Mean Corpuscular Volume 75.1 fL (80.0-98.0); NRBC Abs Auto 0.000 X10*3/uL (0.0-0.012); NRBC Pct Auto 0.0 /100WBC (0.0-0.2); PLT CLUMP 1; Red Blood Count 4.49 X10*6/uL (4.20-5.50)
[2025-02-22 13:50] LABS: Appearance Urine Hazy; Glucose Urine UA Negative (Negative); PH 8.0 (5.0-9.0); Specific Gravity - Urine 1.015 (1.005-1.025); UMIC TRIGGER UACC YES
[2025-02-22 14:30] LABS: Platelet Count 124 X10*3/uL (160-400); White Blood Count 3.1 X10*3/uL (4.8-10.8)
[2025-02-22 15:26] LABS: Folate 11.7 ng/mL (> or = 4.0); Vitamin B12 591 pg/mL (200-900)
[2025-02-22 15:48] LABS: Iron 82 mcg/dL (30-160); Percent Iron Saturation 44 % (15-50); Total Iron Binding Capacity 185 mcg/dL (228-428); Unsaturated Iron Binding 103 ug/dL
[2025-02-22 16:33] LABS: Ferritin 2001 ng/mL (10-250)
== END 2025-02-22 12:18 | disposition home or self-care (01) ==
LOC: HO.LAB 12:17
PROVIDERS: PCP Nurse Practitioner Family; Visit Provider Nurse Practitioner Family
DX: D69.6 Thrombocytopenia, unspecified (principal); D50.9 Iron deficiency anemia, unspecified
CPT/HCPCS: 36415; 81001; 82607; 82728; 82746; 83540; 85027

== ENCOUNTER 2025-02-24 13:44 | Outpatient (AMB) | payer MEDICARE, MEDICAID, SELFPAY ==
--- NOTE | 2025-02-24 13:46 | MHC.PC.OV ---
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 Name: yuan Nichole Information Interpreted: non-clinical & clinical Accompanied by: Daughter Is last menstrual period known: No Post menopausal: No Patient : No Allergies No Known Allergies Allergy (Verified 02/24/25 14:09) Medication List - Last Reconciled 02/24/25 by Kylie Babb CNP alendronate 70 mg PO QWEEK amlodipine 10 mg PO DAILY 30 days apixaban (Eliquis) 2.5 mg PO BID 30 days carvedilol 6.25 mg PO DAILY sevelamer carbonate 1,600 mg PO TIDWM Tobacco use date assessed: 02/24/25 Fall risk assessment: 2 + Falls in past year Last assessed Fall Risk: 02/24/25 Dental Screening Dental Screen Date: 02/24/25 Did you have a dental visit in the last 12 months?: No Did you have a dental problem in the last 6 months where you did not have access to dental care?: No Was dental information given to patient?: Patient has dentist HPI HPI Comments History of Present Illness Details 79-year-old German-speaking female, accompanied by her daughter, presents for hypertension and review of recent lab results. She admits to taking her medications as prescribed without adverse reactions. She has been making healthy lifestyle choices. She reports moderate intermittent pain to her right upper ribs related to a fall. She tripped backwards and struck her right ribcage on a table while holding her grandson who had behavioral outbursts about a week ago. Interpretation by professional business operations analyst via video call. [facility] Medical History Osteoporosis HLD (hyperlipidemia) ESRD (end stage renal disease) on dialysis Kidney disease High blood pressure Asthma Family History Mother Asthma Hypertension Social History Household Members: Family Housing: House Do you presently have visiting nurse or other home services: No Alcohol intake: never Patient Tobacco Use Status: Never used Tobacco e-Cigarette/Vaping Use: Never Used Second Hand Smoke Exposure: No service: No Current occupational status: retired and other Current occupational exposures/hazards: No Cognitive needs: No Hearing needs: No Vision needs: No Questionnaire Thrive Questionnaire Date Thrive assessed: 01/27/25 I am a: Patient What is your living situation today?: I have a steady place to live Within the past 12 months, did the food you bought not last and you didn't have the money to get more?: Sometimes True Within the past 12 months, did you worry whether your food would run out before you got money to buy more?: Never true Do you have trouble paying for medicines?: No Do you have trouble getting transportation to medical appointments?: No Do you have trouble paying your heating and electricity bill?: No Do you have trouble taking care of your child, family member or friend?: No Do you have trouble with day-to-day activities such as bathing, preparing meals, shopping, managing finances, etc.?: No Are you currently unemployed and looking for a job?: Yes Are you interested in more education?: I choose not to answer this question Please select the resources that you would like help with: None Currently or been in a relationship where the following occur: No concerns reported THRIVE Score: 1 JUS-7 AMB Questionnaire JUS-7 Date JUS - 7 assessed: 09/12/24 Source: Developed by Drs. Len Gomez, Rylie Blackman, Juan M Borrego and colleagues, with an educational santos from [employer]. Review of Systems Const Details: Const Denies chills, Denies fatigue, Denies fever(s), Denies headache(s) and Denies weakness ENT Denies dizziness and Denies headache(s) Card Denies chest pain, Denies lightheadedness, Denies dyspnea and Denies other (Palpitations) Resp Denies cough, Denies dyspnea, Denies wheezing and Denies other ( shortness of breath) GI Denies abdominal pain, Denies melena, Denies hematochezia, Denies change in bowel habits, Denies dyspepsia and Denies nausea Denies hematuria and Denies dysuria Musc Reports as per HPI Skin/Breast Denies rash, Denies unusual bruising and Denies wounds Neuro Denies abnormal gait, Denies dizziness, Denies headache(s), Denies memory loss, Denies numbness, Denies Sensory deficit (Neuro), Denies tingling and Denies weakness Psych Denies anxiety, Denies depression, Denies memory loss Endo Denies cold intolerance, Denies fatigue, Denies heat intolerance, Denies polydipsia and Denies polyuria Aller/Immun Denies wheezing Physical exam (Primary Care) Vital Signs: Last Vital Signs Temp 97.6 F 02/24/25 13:52 Pulse 66 02/24/25 13:52 Resp 16 02/24/25 13:52 BP 150/80 H 02/24/25 14:14 Pulse Ox 99 02/24/25 13:52 Oxygen Delivery Method Room Air 02/24/25 13:52 BMI result Body Mass Index 25.5 Tobacco/Smoking Status: Tobacco use Status Tobacco use date assessed 02/24/25 02/24/25 13:56 Patient Tobacco Use Status Never used Tobacco 02/24/25 13:46 e-Cigarette/Vaping Use Never Used 02/24/25 13:46 Thrive Assessment: Date of Thrive Assessment Date Thrive assessed 01/27/25 02/24/25 13:46 Currently or been in a relationship where the following occur: No concerns reported Const Other: General: no acute distress and well developed Nutritional Appearance: well nourished Orientation/consciousness: patient oriented x3 [facility] Head: Yes normocephalic and Yes atraumatic Eyes General: appearance normal, both eyes and all related structures Pupils: Equal, round and reactive pupils present EOM: EOMs intact bilaterally Resp Effort & Inspection: normal respiratory effort Auscultation: clear to auscultation bilaterally Cardio Rate: regular rate Rhythm: regular rhythm Heart sounds: S1 normal heart sound present, S2 normal heart sound present, no gallops, no murmurs and no rubs Musc Right upper rib tenderness, no erythema, edema, or overt injury or trauma Skin General: warm and dry. Normal skin color. Normal skin turgor Neuro General: patient oriented x3, gait normal and no focal neuro deficit Cranial nerves: Yes Equal, round and reactive pupils present Cognition (Neuro): normal cognition Gait exam (Neuro): Normal gait present Sensory Exam: No Sensory deficit (Neuro) Psych Appearance: grossly normal Affect: normal affect Attitude: cooperative Thought process: Normal thought process present Coding Level of Care Code Est Pt Level 4 (73768) Diagnoses High blood pressure I10 Microcytic anemia D50.9 Elevated ferritin R79.89 Rib pain on right side R07.89 Assessment & Plan Assessment & Plan (1) High blood pressure: Code(s): I10 - Essential (primary) hypertension Category: Medical Plan: Resting blood pressure is 150/80, above goal of less than 140/90. Furosemide 20 mg daily ordered; advised to take as prescribed. Instructed on the risks, benefits, and potential adverse reactions of the medication. Continue current treatment regimen. Low-sodium diet encouraged. Follow-up in 1 week for nurse visit for blood pressure check. Return in 1-2 month with a new PCP within the practice or sooner with symptoms or concerns. Verbalized understanding and agreed with the plan. (2) Microcytic anemia: Code(s): D50.9 - Iron deficiency anemia, unspecified Category: Medical Plan: Recent H&H and MCV levels are slightly low, 10.8/33.7 and 75.1 respectively. Ferritin level is significantly elevated, 2000. Iron, vitamin B12, and folate levels are normal. No acute symptoms. Likely due to ESRD. Will recheck ferritin levels and make changes as needed. Follow-up with symptoms or concerns. Verbalized understanding and agreed with the plan. (3) Elevated ferritin: Code(s): R79.89 - Other specified abnormal findings of blood chemistry Category: Medical Plan: Plan as above. (4) Rib pain on right side: Code(s): R07.89 - Other chest pain Category: Medical Plan: She reports moderate intermittent pain to her right upper ribs related to a fall. She tripped backwards and struck her right ribcage on a table while holding her grandson who had behavioral outbursts about a week ago. Right upper rib tenderness, no erythema, edema, or overt injury or trauma May take Tylenol ibuprofen for pain or discomfort. Warm/cool compresses encouraged. Follow-up with worsening or new symptoms. Verbalized understanding and agreed with the plan. Orders: Orders Ferritin Today R79.89 - Other specified abnormal findings of blood chemistry Medications: New furosemide (Lasix) 20 mg PO QAM 30 tabs 3RF 30 days Refilled apixaban (Eliquis) 2.5 mg PO BID 60 tabs 3RF 30 days
[2025-02-24 13:52] VITALS: BP 174/84; PULSE 66; RESP 16; TEMP 36.4; O2SAT 99; BMI 25.5
[2025-02-24 14:14] VITALS: BP 150/80
--- OUTSIDE RECORDS SUMMARY | 2025-02-24 17:58 | XMS_ITS | Encounter Summary ---
Author Organization [facility], Address [address] [place] [address] Phone Care Team Providers Care Wound/Ostomy Clinical Nurse Specialist Name Role Phone Unavailable Primary Care Provider Unavailabl e Encounter Details Date Type Department Care Team (Late st Contact Info) Description 05/26/2024 Documentation Only [facility], [address] [place] [address] Peace Diaz Social History Tobacco [...]
--- OUTSIDE RECORDS SUMMARY | 2025-02-24 17:58 | XMS_ITS | Encounter Summary ---
Author Organization [facility], Address [address] [place] [address] Phone Care Team Providers Care Surgical Dental Assistant Name Role Phone Unavailable Primary Care Provider Unavailabl e Encounter Details Date Type Department Care Team (Late st Contact Info) Description 02/23/2025 Orders Only [facility], [address] [place] [address] Caleb Gold MD [address] [place] [id number] Social History Tobacco Use Types Packs/Day Years Used Date Smoking Tobacco: Never Assessed Comments Unknown Sex and Gender Information Value Date Recorded Sex Assigned at Not on file Legal Sex Female 11:37 AM EST Gender Identity Not on file Sexual Orientation Not on file documented as of this encounter Plan of Treatment Pending Results Name Type Priority Associated Diagnoses Date /Time Post Dialysis BUN Lab Routine 025 documented as of this encounter Procedures Procedure Name Priority Date/Time Associated Diagnosis Comments HEMOGLOBIN Routine 02/23/2025 BUN Routine 02/23/2025 documented in this encounter Results * (ABNORMAL) Hemoglobin (02/23/2025) Hemoglobin 10.3(L) 11.7 - 14.0 g/dL [facility] 02/23/2025 02/22/2025 2:5 0 PM EST Narrative Resulting Agency Comment Performing Organization Information: Site ID: [id number] Name: [facility] Address: [address] [place] [phone] Director: Дмитрий Alonso Caleb Gold MD LAB BLOOD ORDERABLES Final Re sult Performing Organization Address [facility] Co de Phone Number [facility] [place] [facility] [address] [place] [address] * (ABNORMAL) BUN (02/23/2025) BUN 61(H) 7 - 25 mg/dL [facility] [place] [facility] 02/23/2025 02/22/2025 2:5 0 PM EST Narrative Resulting Agency Comment Performing Organization Information: Site ID: [id number] Name: [facility] [place] [facility] Address: [address] [place] [phone] Director: Дмитрий Alonso Caleb Gold MD LAB BLOOD ORDERABLES Final Re sult Performing Organization Address [facility] Co de Phone Number [facility] [place] [facility] [address] [place] [phone] documented in this encounter Visit Diagnoses Not on filedocumented in this encounter
--- OUTSIDE RECORDS SUMMARY | 2025-02-24 17:58 | XMS_ITS | Clinical Summary ---
Author Organization [facility] Facility Address [address] [place] [id number] Care Team Providers Care Realtime Captioner Name Role Phone Unavailable Primary Care Provider Unavailabl e Encounters Date Type Department Care Team Description 02/23/2025 Orders Only [facility] [address] [place] [address] Caleb Gold MD 02/21/2025 Treatment [facility] [address] [place] [address] Parviz Sweeney MD End stage renal disease; Dependence on renal dialysis 02/15/2025 Orders Only [facility] [address] [address] Caleb Gold MD 02/15/2025 Treatment [facility] [address] [place] [address] Chiquis Long FNP-C End stage renal disease; Dependence on renal dialysis 02/09/2025 Orders Only [facility] [address] [address] Caleb Gold MD 02/07/2025 Treatment [facility] [address] [place] [address] Chiquis Long FNP-C End stage renal disease; Dependence on renal dialysis 02/02/2025 Orders Only [facility] [address] [address] Caleb Gold MD 01/31/2025 Orders Only [facility] [address] [address] Caleb Gold MD 01/31/2025 Treatment [facility] [address] [place] [address] Parviz Sweeney MD End stage renal disease; Dependence on renal dialysis 01/26/2025 Orders Only [facility] [address] [address] Caleb Gold MD 01/24/2025 Treatment [facility] [address] [place] [address] Chiquis Long FNP-C End stage renal disease; Dependence on renal dialysis 01/19/2025 Orders Only [facility] [address] [address] Caleb Gold MD 01/12/2025 Orders Only [facility] [address] [address] Caleb Gold MD 01/10/2025 Treatment [facility] [address] [place] [address] Chiquis Long FNP-C End stage renal disease; Dependence on renal dialysis 01/05/2025 Orders Only [facility] [address] [address] Caleb Gold MD 01/03/2025 Treatment [facility] [address] [place] [address] Chiquis Long FNP-C End stage renal disease; Dependence on renal dialysis 12/29/2024 Orders Only [facility] [address] [address] Caleb Gold MD 12/29/2024 Treatment [facility] [address] [place] [address] Parviz Sweeney MD End stage renal disease; Dependence on renal dialysis 12/22/2024 Orders Only [facility] [address] [address] Caleb Gold MD 12/22/2024 Treatment [facility], [address] [place] [address] Parviz Sweeney MD End stage renal disease; Dependence on renal dialysis 12/20/2024 Treatment [facility], [address] [place] [address] Chiquis Long FNP-C End stage renal disease; Dependence on renal dialysis 12/15/2024 Orders Only [facility] [address] [address] Caleb Gold MD 12/13/2024 Treatment [facility], [address] [place] [address] Chiquis Long FNP-C End stage renal disease; Dependence on renal dialysis 12/08/2024 Orders Only [facility] [address] [address] Caleb Gold MD 12/01/2024 Orders Only [facility] [address] [address] Caleb Gold MD 11/29/2024 Treatment [facility], [address] [place] [address] Parviz Sweeney MD End stage renal disease; [...] Comments HEMOGLOBIN Routine 02/23/2025 BUN Routine 02/23/2025 HEMATOLOGY Routine 02/15/2025 IMMUNO CHEMISTRY Routine 02/15/2025 IMMUNO CHEMISTRY Routine 02/09/2025 CHEMISTRY Routine 02/09/2025 CHEMISTRY Routine 02/09/2025 HEMATOLOGY Routine 02/09/2025 HEMATOLOGY Routine 02/02/2025 [facility] RESULTS Routine 01/31/2025 HD KINETICS Routine 01/31/2025 POST CHEMISTRY Routine 01/31/2025 CHEMISTRY Routine 01/31/2025 CHEMISTRY Routine 01/26/2025 HEMATOLOGY Routine 01/26/2025 HEMATOLOGY Routine 01/19/2025 HEMATOLOGY Routine 01/12/2025 CHEMISTRY Routine 01/05/2025 IMMUNO CHEMISTRY Routine 01/05/2025 CHEMISTRY Routine 01/05/2025 HEMATOLOGY Routine 01/05/2025 HEMATOLOGY Routine 12/29/2024 [facility] LAB RESULTS Routine 12/22/2024 HD KINETICS Routine 12/22/2024 POST CHEMISTRY Routine 12/22/2024 CHEMISTRY Routine 12/22/2024 HEMATOLOGY Routine 12/22/2024 HEMATOLOGY Routine 12/15/2024 IMMUNO CHEMISTRY Routine 12/08/2024 CHEMISTRY Routine 12/08/2024 HEMATOLOGY Routine 12/08/2024 CHEMISTRY Routine 12/08/2024 HEMATOLOGY Routine 12/01/2024 from Last 3 Months Results * (ABNORMAL) Hemoglobin (02/23/2025) Hemoglobin 10.3(L) 11.7 - 14.0 g/dL [facility] 02/23/2025 02/22/2025 2:5 0 PM EST Narrative Resulting Agency Comment Performing Organization Information: Site ID: [id number] Name: [facility] Address: [address] [place] [phone] Director: Дмитрий Alonso Caleb Gold MD LAB BLOOD ORDERABLES Final Re sult [facility] [place] [facility] [address] [place] [phone] * (ABNORMAL) BUN (02/23/2025) BUN 61(H) 7 - 25 mg/dL [facility] 02/23/2025 02/22/2025 2:5 0 PM EST Narrative Resulting Agency Comment Performing Organization Information: Site ID: [id number] Name: [facility] Address: [address] [place] [phone] Director: Дмитрий Alonso Caleb Gold MD LAB BLOOD ORDERABLES Final Re sult Performing Organization Address [facility] de Phone Number [facility] [address] [place] [phone] * IMMUNO CHEMISTRY (02/15/2025) Only the most recent of4 resultswithin the time period is included. Pathologist [facility] Hepatitis B Surface Ab 20 mIU/mL [employer] Comment: The anti-HBs (Hepatitis B surface antibody) is greater than or equal to 10 mIU/mL and implies immunity. The patient has either had an antibody response to HBV vaccination, received a transfusion, or has recovered from HBV infection. For post-vaccination antibody testing guidelines for the general public, refer to MMWR March 14, 2005/Vol.54 (No. 16); 1-23, and for healthcare workers, refer to MMWR March 11, 2013/Vol.62 (No. 10); 1-18. Reference Range: <10 mIU/mL Non-Immune >=10 mIU/mL Immune The magnitude of the measured result above 10 mIU/mL is not indicative of the total amount of antibody present. 02/15/2025 02/17/2025 10: 42 AM EST Narrative [facility] - 02/17/2025 Unless otherwise specified, test(s) performed at: [facility], [address] [place] [id number] FORM DESIGNER: Clyde Baca M.D. For any questions, please call customer service at FREQUENCY:OTHER Resulting Agency Comment Specimen source: Serum Caleb Gold MD LAB BLOOD ORDERABLES Final Re sult Performing Organization Address [facility] Co de Phone Number [facility] See order comments or contact performing lab Unknown, [place] * (ABNORMAL) HEMATOLOGY (02/15/2025) Only the most recent of12 resultswithin the time period is included. Pathologist [facility] Hemoglobin 9.7(L) 12.0 - 16.0 g/dL [facility] Hemoglobin x 3 29.1(L) 36.0 - 48.0 % [facility] 02/15/2025 02/17/2025 11: 26 AM EST Narrative [facility] - 02/17/2025 Unless otherwise specified, test(s) performed at: [facility], [address] [place] [address] FORM DESIGNER: Clyde Baca M.D. For any questions, please call customer service at FREQUENCY:OTHER Resulting Agency Comment Specimen source: Blood Calbe Gold MD LAB BLOOD ORDERABLES Final Re sult Performing Organization Address [facility] Co de Phone Number [facility] See order comments or contact performing lab Unknown, [place] * (ABNORMAL) [facility] (02/09/2025) Only the most recent of9 resultswithin the time period is included. PTH 236(H) 16 - 80 pg/mL [facility] 02/09/2025 02/10/2025 7:3 7 AM EST Narrative [facility] - 02/10/2025 Unless otherwise specified, test(s) performed at: [facility], [address] [place] [address] FORM DESIGNER: Clyde Baca M.D. For any questions, please call customer service at FREQUENCY:MONTHLY Resulting Agency Comment Specimen source: Plasma Caleb Gold MD LAB BLOOD ORDERABLES Final Re sult Performing Organization Address [facility]/ZIP Co de Phone Number [facility] See order comments or contact performing lab Unknown, [place] * (ABNORMAL) HD KINETICS (01/31/2025) Only the most recent of2 resultswithin the time period is included. % Urea Reduction 83(H) 65 - 80 % [facility] 01/31/2025 02/01/2025 8:4 1 AM EST Narrative Resulting Agency Comment Specimen source: Plasma Caleb Gold MD LAB BLOOD ORDERABLES Final Re sult [facility] See order comments or contact performing lab Unknown, [place] * POST CHEMISTRY (01/31/2025) Only the most recent of2 resultswithin the time period is included. BUN Post Dialysis 14 6 - 19 mg/dL [facility] 01/31/2025 02/01/2025 8:4 1 AM EST Narrative [facility] - 02/01/2025 Unless otherwise specified, test(s) performed at: [facility], [address] [place] [address] FORM DESIGNER: Clyde Baca M.D. For any questions, please call customer service at FREQUENCY:OTHER Resulting Agency Comment Specimen source: Plasma Caleb Gold MD LAB BLOOD ORDERABLES Final Re sult Performing Organization Address [facility] Co de Phone Number [facility] See order comments or contact performing lab Unknown, [place] * [facility] Results (01/31/2025) Only the most recent of2 resultswithin the time period is included. Pathologist [facility] eKt/V ([place]) 1.72 [facility] WSTDKT/V 0.9 [facility] Center spKt/V ([place]augirdas II) 2.01 [facility] 01/31/2025 01/31/2025 [facility] Ordering Provider LAB BLOOD ORDERABLES Final Result Performing Organization Address City/[facility] Co de Phone Number [facility] Contact Performing lab Unknown, [place] from Last [address] [address] [place] [phone] Medicare [place]
--- OUTSIDE RECORDS SUMMARY | 2025-02-24 17:58 | XMS_ITS | Encounter Summary ---
Author Organization [facility], Address [address] [place] [address] Phone Care Team Providers Care Senior Clinical Sas Programmer Name Role Phone Unavailable Primary Care Provider Unavailabl e Encounter Details Date Type Department Care Team (Late st Contact Info) Description 02/21/2025 Treatment [facility], [address] [place] [address] Parviz Patterson MD [address] [place] [address] End stage renal disease; Dependence on renal [...] Dialysis Note - Parviz Patterson MD - 02/21/2025 12:00 AM EST Patient: Cony Jones : 1945 Note Type: Dialysis Rounds-Comp Service Date: 02/21/2025 This patient was personally seen [id number] for a complete visit as part of routine monthly dialysis care for end stage renal disease. Attending Delicatessen Department Manager: PARVIZ PATTERSON Dialysis Location: [facility] Schedule: Shift: 2 OVERVIEW COMMENTS: New start at the unit. Came from [place]. ESRD secondary to HTN. On HD in [place] for 2.5 years. Doing well on treatment today. Labs being drawn and will be reveiwed accordingly. HOME MEDICATIONS [facility] Medications acetaminophen 325 mg capsule Take 2 capsule by mouth every eight hours. [PRN pain] albuterol sulfate 90 mcg/actuation HFA aerosol inhaler Inhale 2 puff using inhaler every four hours as needed. [for wheezing] alendronate 70 mg tablet Take 1 tablet by mouth once a week. amiodarone 200 mg tablet Take 1 tablet by mouth once a day. amlodipine 5 mg tablet Take 1 tablet by mouth once a day as directed. Aspirin Childrens 81 mg tablet,chewable Take 1 tablet by mouth once a day. Coreg 6.25 mg tablet Take 1 tablet by mouth once a day. Eliquis 2.5 mg tablet Take 1 tablet by mouth twice a day as directed. [.] Sevelamer Carbonate Tablet 800 mg tablet Take 7 Tablet By Mouth Every 24 hours With Meals. [Take 2 tablets with 3 meals a day and 1 tablet with 1 snack daily.] Current [facility] Allergies Allergen: No Known Allergies Allergen: No Known Drug Allergies Allergen: No Known Food Allergies DIALYSIS PRESCRIPTION Treatment Data Treatment Date: 02/21/2025 started at: 11:26 AM Dialysate / Machine Temp (prescribed): 36.0*C Dialysate / Machine Temp (actual): 35.8*C BFR (prescribed): 450 BFR (actual): 450 DFR (prescribed): Manual 500 DFR (actual): 500 Prescribed Time: 03:15 EDW (kg): 58.0 Dialyzer: FX CorAL 60 Dialysate: 2.0 K, 2.50 Ca, 1.0 Mg, 100 Dextrose ([id number]) Sodium: 137 Bicarb: 35 Pre Dialysis Vitals Pre BP Sit: 176/88 Pre Wt (kg): 60.4 EDW Deviation (kg): 2.4 Temp: 98.1*F Current Dialysis Vitals BP Sit: 172/95 AP/RAILWAY PATROL OFFICER: -- Pulse: 64 TREATMENT MEDICATIONS ORDERS Iron Sucrose (Venofer) 100 mg IVP Every Treatment 02/14/2025 - 02/23/2025 Mircera 50 mcg IVP Every 2 weeks 02/14/2025 - 02/13/2026 Vitamin D (Calcitriol) Oral 0.75 mcg ORAL Every Treatment 12/13/2024 - 12/12/2025 BP AND FLUID ASSESSMENT IDWG (kg) 2.1 - 02/18/2025 1.4 - 02/15/2025 1.1 - 02/13/2025 Post BP Sit 157/90 - 02/18/2025 131/71 - 02/15/2025 172/91 - 02/13/2025 Post Wt (kg) 58.6 - 02/18/2025 58.5 - 02/15/2025 58.3 - 02/13/2025 EDW (kg) 58.0 - 02/18/2025 58.0 - 02/15/2025 58.0 - 02/13/2025 Deviation (kg) 0.6 - 02/18/2025 0.5 - 02/15/2025 0.3 - 02/13/2025 ADEQUACY ASSESSMENT spKt/V (Daugirdas II) 2.01 (01/31/25) 1.80 (12/22/24) 1.66 (11/24/24) eKdrt/V 1.51 (12/22/24) 1.36 (11/24/24) 1.68 (10/29/24) % Urea Reduction 83 (01/31/25) 79 (12/22/24) 78 (11/24/24) BUN 52 (02/09/25) 81 (01/31/25) 66 (01/26/25) BUN Post Dialysis 14 (01/31/25) 12 (12/22/24) 13 (11/24/24) Creatinine 7.50 (02/09/25) 6.81 (01/05/25) 8.05 (12/08/24) Bicarbonate (CO2) 28 (02/09/25) 26 (01/05/25) 24 (12/08/24) Sodium 136 (02/09/25) 140 (01/05/25) 136 (12/08/24) Missed Treatments 1 - Last 30 days 1 - Last 60 days Most recently missed on 01/28/2025 ACCESS ASSESSMENT AVFistula Standard Left Upper Arm Active (In Use) - 03/31/2024 Placed - Unknown Access Flow 654 (02/21/25) 651 (01/21/25) 672 (01/07/25) ANEMIA ASSESSMENT Hemoglobin 9.7 (02/15/25) 9.3 (02/09/25) 9.4 (02/02/25) Iron Saturation (TSat) 22 (02/09/25) 67 (01/05/25) 68 (12/08/24) Ferritin 1,100 (02/09/25) 1,221 (01/05/25) 1,029 (12/08/24) Iron 52 (02/09/25) 155 (01/05/25) 172 (12/08/24) TIBC 232 (02/09/25) 231 (01/05/25) 254 (12/08/24) MCV 78 (01/05/25) 76 (10/06/24) 87 (07/07/24) Platelets 93 (01/05/25) 101 (10/06/24) 128 (07/07/24) BMM ASSESSMENT Calcium 9.0 02/09/25 8.5 01/05/25 9.4 12/08/24 Corrected Calcium 9.2 02/09/25 8.7 01/05/25 9.6 12/08/24 Phosphorus 5.3 02/09/25 5.3 01/05/25 6.1 12/08/24 Calcium Phosphorus Product 48 02/09/25 45 01/05/25 57 12/08/24 PTH 236 02/09/25 215 01/05/25 79 12/08/24 Vitamin D, 25-OH, Total 32.2 10/06/24 27.7 03/31/24 Aluminum ?5 03/31/24 NUTRITION ASSESSMENT Albumin 3.7 02/09/25 3.8 01/05/25 3.8 12/08/24 Potassium 4.9 02/09/25 5.1 01/05/25 4.8 12/08/24 eNPCR 1.01 12/22/24 0.95 11/24/24 1.15 10/29/24 Glucose 126 02/09/25 102 01/05/25 83 12/08/24 ADDITIONAL LABS WBC 3.28 (01/05/25) 3.75 (10/06/24) 3.88 (07/07/24) Hepatitis B Surface Ab 20 (02/15/25) 25 (10/06/24) 27 (03/31/24) ALT (SGPT) 8 (02/09/25) 8 (01/05/25) 8 (12/08/24) AST (SGOT) 12 (02/09/25) 13 (01/05/25) 12 (12/08/24) ADDITIONAL COMMENT COMMENTS: Patient is stable Medications [...] reviewed. Dietary adjustments made in conjunction with finisher cold rolling. 7. Transplant: The patient is being evaluated for a kidney transplant. 11/11: stable, same HD Rx 12/2: stable, no complaints, same HD Rx Signed by: PARVIZ PATTERSON MD on 02/21/2025 at 02:55:01 PM Transcribed by: PARVIZ PATTERSON MD on 02/21/2025 at 02:55:01 PM documented in this encounter Plan of Treatment Not on file documented as of this encounter Visit Diagnoses Diagnosis End stage renal disease Dependence on renal dialysis documented in this encounter
--- OUTSIDE RECORDS SUMMARY | 2025-02-24 17:58 | XMS_ITS | Encounter Summary ---
Author Organization [facility], Address [address] [place] [address] Phone Care Team Providers Care Assistant Merchandise Manager Name Role Phone Unavailable Primary Care Provider Unavailabl e Encounter Details Date Type Department Care Team (Late st Contact Info) Description 07/15/2024 Documentation Only [facility], [address] [place] [address] Brittnee Wyatt [address] [place] [phone] Social History Tobacco Use Types Packs/Day [...]
--- OUTSIDE RECORDS SUMMARY | 2025-02-24 17:58 | XMS_ITS | Encounter Summary ---
Author Organization [facility], Address [address] [place] [address] Phone Care Team Providers Care Porcelain Mixer Name Role Phone Unavailable Primary Care Provider Unavailabl e Encounter Details Date Type Department Care Team (Late st Contact Info) Description 05/26/2024 Documentation Only [facility], [address] [place] [address] Peace Diaz Social History Tobacco [...]
== END 2025-02-24 14:33 | disposition home or self-care (01) ==
LOC: HO.HMCFM 13:45
PROVIDERS: PCP Nurse Practitioner Family; Visit Provider Nurse Practitioner Family
DX: I10 Essential (primary) hypertension (principal); D50.9 Iron deficiency anemia, unspecified; R79.89 Other specified abnormal findings of blood chemistry; R07.89 Other chest pain

== ENCOUNTER → 2025-02-24 13:44 | Outpatient (BNVA) | payer MEDICARE, MEDICAID, SELFPAY | PROVIDERS: PCP Nurse Practitioner Family; Visit Provider Nurse Practitioner Family | DX: I10 Essential (primary) hypertension (principal); D50.9 Iron deficiency anemia, unspecified; R79.89 Other specified abnormal findings of blood chemistry; R07.89 Other chest pain | CPT/HCPCS: 99212 ==